=== PATIENT | female | born 1985 | race Caucasian/White ===

== ENCOUNTER 2016-11-04 16:28 | Inpatient (IN) ==
[2016-11-04] MEDS ORDERED: Ketorolac 30 MG/ML VIAL IVP ONE (17:59)
[2016-11-04] MEDS ORDERED: *HR* HYDROmorphone (PF) 1 MG/ML SYRINGE IVP ONE (17:59)
[2016-11-04] MEDS ORDERED: 0.9 % Sodium Chloride 1,000 ML IVC ONE (18:00)
[2016-11-04] MEDS ORDERED: Ondansetron 4 MG/2 ML VIAL IVP ONE (18:00)
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
[2016-11-04 18:31] LABS: Basophils # 0.1 K/mcL (0.0-0.2); Basophils % 0.6 %; Eosinophils # 0.1 K/mcL (0.0-0.6); Eosinophils % 1.3 %; Hematocrit 42.6 % (35.3-44.9); Hemoglobin 14.1 g/dL (11.5-15.4); Immature Granulocytes % 0.3 % (0-4); Lymphocytes # 3.1 K/mcL (0.6-4.6); Lymphocytes % 29.4 %; Mean Corpuscular HGB Conc 33.1 g/dL (31.6-35.5); Mean Corpuscular Hemoglobin 31.7 pg (28.0-33.3); Mean Corpuscular Volume 95.7 fL (83.0-100.0); Mean Platelet Volume 10.9 fL (9.4-12.4); Monocytes # 0.7 K/mcL (0.0-1.3); Monocytes % 6.2 %; Neutrophils # 6.5 K/mcL (1.6-8.9); Platelet Count 231 K/mcL (140-400); Red Blood Count 4.45 M/mcL (3.82-4.97); Red Cell Distribution Width 12.4 % (11.5-14.5); Segmented Neutrophils % 62.2 %
[2016-11-04 18:44] LABS: Alanine Aminotransferase 26 Units/L (0-55); Albumin 4.1 g/dL (3.5-5.0); Albumin/Globulin Ratio 1.1 (1.1-2.2); Alkaline Phosphatase 88 Units/L (38-126); Aspartate Amino Transferase 21 Units/L (5-34); BUN/Creatinine Ratio 13 (6-26); Bilirubin,Total 0.2 mg/dL (0.2-1.2); Blood Urea Nitrogen 11 mg/dL (7-20); Calcium 10.2 mg/dL (8.6-10.8); Carbon Dioxide 24 mEq/L (19-29); Chloride 105 mEq/L (98-109); Globulin 3.8 g/dL (2.4-3.5); Glucose 101 mg/dL (70-99); Osmolality,Calculated 288 (280-300); Potassium 3.8 mEq/L (3.5-4.5); Sodium 139 mEq/L (136-145); Total Protein 7.9 g/dL (6.0-8.3); eGFR For African Americans > 60 (> 60); eGFR For Non-African Americans > 60 (> 60)
[2016-11-04] MEDS ORDERED: Naloxone 0.4 MG/ML INJ IVP PRN (22:06)
[2016-11-04] MEDS ORDERED: Acetaminophen 325 MG TABLET PO PRN (22:06)
--- NOTE | 2016-11-04 22:21 | Internal Med History&Physical ---
<WylieDee M - Last Filed: 11/04/16 22:48> Date of Encounter: 11/04/16 Time of Encounter: 22:11 Assessment and Plan (1) Pyelonephritis Current visit: Yes Status: Acute Patient with bilateral flank pain, nausea, hematuria, chills and body aches, consistent with her previous symptoms with pyelo. Significant bilateral CVA tenderness. Urine culture from 5 grew resistant e.coli. Patient with multiple antibiotic allergies. blood cultures drawn. Aztreonam 1g IVPB Q8hr IV fluids 0.9NS at 100mL/hr Zofran PRN for nausea tylenol, norco and IVP diluadid PRN for pain Narcan PRN for respiratory depression. (2) UTI (urinary tract infection) Current visit: No Status: Acute Patient with bilateral flank pain, nausea, hematuria, chills and body aches, consistent with her previous symptoms with pyelo. Significant bilateral CVA tenderness. Urine culture from 11/02 grew resistant e.coli. Patient with multiple antibiotic allergies. Aztreonam 1g IVPB Q8hr IV fluids 0.9NS at 100mL/hr Zofran PRN for nausea tylenol, norco and IVP diluadid PRN for pain Narcan PRN for respiratory depression. Qualifiers: Urinary tract infection type: acute pyelonephritis Qualified Code(s): N10 - Acute pyelonephritis (3) DVT prophylaxis Current visit: Yes Status: Acute Encourage ambulation anti-embolic stockings Heparin 5,000u SQ BID (4) Asthma Current visit: Yes Status: Acute Continue home dose of albuterol and beclamethasone inhalers Qualifiers: Asthma severity: unspecified severity Asthma complication type: uncomplicated Qualified Code(s): J45.909 - Unspecified asthma, uncomplicated (5) Smoking Current visit: Yes Status: Acute Discussed smoking cessation and risks of smoking on intermediate health. Patient not ready to quit. nicotine patch ordered. Internal Medicine - H&P: HPI Chief complaint: UTI Admitted From: Emergency Dept Plans for Post Hospital Care: Home History of present illness: Ms. Alfred is a 31 year old female with a asthma, neurogenic bladder and multiple episodes of pyelonephritis in the past who presented to the ED today with worsening symptoms of bilateral flank pain, nausea, chills, hematuria and body aches. She reports the symptoms started about a week ago. She came to the ED 2 days ago on 11/02 and was given levaquin. Her symptoms have continued to get worse. She denies any headache, chest pain, palpitations, lightheadedness. The urine culture from 11/02 grew e.coli resistant to ciprofloxacin. CT from 11/02 showed non obstructing bilateral renal calculi, no hydronephrosis or perinephric stranding. She was afebrile with stable VS in the ED. WBC 10.5, creatinine normal at 0.87. The ED initiated aztreonam IVPB. On exam, she is alert and oriented and in no acute distress. Lungs are clear , heart has regular rate and rhythm, Abdomen is mildly tender, and she has significant CVA tenderness bilaterally. Past Med Surg Social Fam HX - Past Medical History Medical history: asthma, kidney stones, renal disease, other (neurogenic bladder ) Psychiatric history: anxiety, depression - Past Surgical History Surgical History: , cholecystectomy, herniorrhaphy, hysterectomy - Social History Smoking Status: Current every day smoker Packs per day: 0.5 Smokeless Tobacco Status: No Alcohol use: rarely Drug use: none - Family History Father Living Status: Age at : 64 Cause of : MS Internal Medicine - H&P: Meds Albuterol Sulfate [Albuterol Inhaler] 2 puff IH Q6HR PRN #1 hfa.aer.ad 08/11/15 [Rx] AcetaZOLAMIDE [Diamox Sequels] 500 mg PO BID 11/04/16 [History] Azelastine 0.1% Nasal [place] [Astelin] 2 spray NS DAILY 11/04/16 [History] Beclomethasone Diprop 80mcg [QVAR 80 mcg] 2 puff IH BID 11/04/16 [History] Buspirone HCl [Buspar] 30 mg PO BID 11/04/16 [History] Dicyclomine [Bentyl] 10 mg PO QID 11/04/16 [History] Omeprazole [PriLOSEC] 20 mg PO DAILY 11/04/16 [History] Allergies ceftriaxone [From Rocephin] Allergy (Verified 11/04/16 16:41) Blister cephalexin [From Keflex] Allergy (Verified 11/04/16 16:41) Blister gentamicin [Gentamicin] Allergy (Verified 11/04/16 16:41) Blister Influenza Virus Vaccines Allergy (Verified 11/04/16 16:41) Swelling of Lip/Tongue/Throat Penicillins [PCN] Allergy (Verified 11/04/16 16:41) Swelling of Lip/Tongue/Throat Pneumococcal Vaccine Allergy (Verified 11/04/16 16:41) Swelling of Lip/Tongue/Throat Sulfa (Sulfonamide Antibiotics) Allergy (Verified 11/04/16 16:41) Muscle Pain ciprofloxacin [From Cipro] Adverse Reaction (Verified 11/04/16 16:41) See Comments it doesn't work nitrofurantoin [From Macrobid] Adverse Reaction (Verified 11/04/16 16:41) Blister tramadol Adverse Reaction (Verified 11/04/16 16:41) Fatigued All Systems PM: A 10-system review of systems was performed and is negative for pertinent findings except as documented above in the HPI. - Constitutional Constitutional: chills, no fever(s), no night sweats - EENT Eyes: no change in vision, no discharge, no pain, no photophobia Ears: no ear discharge, no ear pain, no tinnitus Nose, mouth and throat: no dysphagia, no nasal discharge, no neck pain, no sore throat - Cardiovascular Cardiovascular ROS IM: no chest pain, no diaphoresis, no dyspnea, no lightheadedness, no palpitations, no syncope - Respiratory Respiratory: no cough, no dyspnea, no wheezing, no excessive phlegm production - Gastrointestinal Gastrointestinal: abdominal pain, nausea, no diarrhea, no hematemesis, no hematochezia, no melena, no vomiting - Genitourinary Genitourinary: hematuria, no change in urinary stream, no dysuria, no flank pain - Musculoskeletal Musculoskeletal ROS IM: no numbness, no tingling - Integumentary Integumentary IM: no rash, no unusual bruising - Neurological Neurological ROS: no confusion, no convulsions, no focal weakness, no numbness, no tingling, no tremor(s) - Hematologic/Lymphatic Hematologic/Lymphatic: no easy bruising - Constitutional Vitals: Temp Pulse Resp BP Pulse Ox 97.8 F 78 16 112/72 97 11/04/16 20:50 11/04/16 20:50 11/04/16 20:50 11/04/16 20:50 11/04/16 20:50 General appearance: Present: A&O X 3, no acute distress - Head Head exam: Present: atraumatic, normocephalic - Eye Eye exam: Present: PERRL, conjuntiva pink, sclera anicteric Pupils: Present: PERRL - Neck Neck exam general surgery: Present: supple, trachea midline. Absent: lymphadenopathy - Respiratory Respiratory exam: Present: CTAB. Absent: accessory muscle use, rales, rhonchi, wheezes - Cardiovascular Cardiovascular exam: Present: RRR, +S1, +S2. Absent: diastolic murmur, gallop, rubs, systolic murmur - GI/Abdominal GI/Abdominal exam: Present: normal bowel sounds, soft, tenderness, no peritoneal signs. Absent: distended - Extremities Exam Extremities exam: Present: warm, radial pulses palpable and symetrical. Absent : calf tenderness, cyanotic, pedal edema - Back Exam Back exam: Present: CVA tenderness (L), CVA tenderness (R) - Neurological Exam Neurological exam: Present: CN II-XII intact, oriented X3, no focal deficits. Absent: facial droop, speech deficit - Skin Skin exam: Present: dry, intact Internal Med - H&P Results - Labs CBC & Chem 7: 11/04/16 18:21 11/04/16 18:21 <Tyler Porras R - Last Filed: 11/05/16 10:12> Date of Encounter: 11/04/16 Internal Medicine - H&P: HPI History of present illness: Ms. Alfred is a 31 year old female All Systems PM: A 10-system review of systems was performed and is negative for pertinent findings except as documented above in the HPI. - Constitutional Vitals: Temp Pulse Resp BP Pulse Ox 97.6 F 61 14 92/60 93 L 11/05/16 07:30 11/05/16 07:30 11/05/16 07:30 11/05/16 07:30 11/05/16 07:30 Internal Med - H&P Results - Labs CBC & Chem 7: 11/05/16 04:49 11/05/16 04:49 Labs: Short CBC 11/05/16 Range/Units 04:49 WBC 7.9 (4.3-11.1) K/mcL Hgb 12.9 (11.5-15.4) g/dL Hct 40.9 (35.3-44.9) % Plt Count 196 (140-400) K/mcL Neutrophils # 3.4 (1.6-8.9) K/mcL [facility] 11/05/16 04:49 Sodium 141 Potassium 4.0 Chloride 110 H Carbon Dioxide 25 BUN 13 Creatinine 0.85 Glucose 107 H Calcium 9.3 - Attending Attestation I examined this patient and my medical decision-making was reviewed with the CAD ADMINISTRATOR/PA/Advanced Practice Nurse/Resident Physician. I agree with the documented findings, disposition and treatment plan as described except to the extent set forth below. I have personally evaluated the pt and discussed the details with the pt. 31- year-old female with history for neurogenic bladder and straight catheters at home. She uses sterile catheter each time. 2-3 UTIs / year. O/E: Afebrile. Bilateral renal angle tenderness present. UTI / pyelonephritis: urine culture on 11/02/16 shows E.coli, resistant to ciprofloxacin. Estela has multiple drug allergies. Will emperically treat with aztreonam 500 mg Q8H. Will request Microbiology to check sensitivities to aztreonam. Follow up with her urologist, to consider prophylactic antibiotics.
[2016-11-04] MEDS: *HR* HYDROmorphone (PF) 1 MG/ML SYRINGE IVP PRN (23:16)
[2016-11-04] MEDS: 0.9 % Sodium Chloride 1,000 ML IVC SCH (23:17)
[2016-11-05] MEDS ORDERED: *HR* Promethazine 25 MG/ML VIAL IVP ONE (01:33)
[2016-11-05] MEDS: *HR* HYDROcodone/Acet 5/325 mg TABLET PO PRN ×4 (01:46→20:27)
[2016-11-05] MEDS ORDERED: Aztreonam 1,000 MG in D5% in Water (Mini-Bag+) 100 ML IVPB SCH ×2 (04:00→13:00)
[2016-11-05] MEDS: *HR* HYDROmorphone (PF) 1 MG/ML SYRINGE IVP PRN ×3 (04:56→17:23)
[2016-11-05 05:36] LABS: Basophils # 0.1 K/mcL (0.0-0.2); Basophils % 0.6 %; Eosinophils # 0.3 K/mcL (0.0-0.6); Eosinophils % 3.2 %; Hematocrit 40.9 % (35.3-44.9); Hemoglobin 12.9 g/dL (11.5-15.4); Immature Granulocytes % 0.1 % (0-4); Lymphocytes # 3.6 K/mcL (0.6-4.6); Lymphocytes % 45.1 %; Mean Corpuscular HGB Conc 31.5 g/dL (31.6-35.5); Mean Corpuscular Hemoglobin 30.8 pg (28.0-33.3); Mean Corpuscular Volume 97.6 fL (83.0-100.0); Monocytes # 0.6 K/mcL (0.0-1.3); Monocytes % 7.7 %; Neutrophils # 3.4 K/mcL (1.6-8.9); Platelet Count 196 K/mcL (140-400); Red Blood Count 4.19 M/mcL (3.82-4.97); Red Cell Distribution Width 12.6 % (11.5-14.5); Segmented Neutrophils % 43.3 %
[2016-11-05 05:50] LABS: BUN/Creatinine Ratio 15 (6-26); Blood Urea Nitrogen 13 mg/dL (7-20); Calcium 9.3 mg/dL (8.6-10.8); Carbon Dioxide 25 mEq/L (19-29); Chloride 110 mEq/L (98-109); Glucose 107 mg/dL (70-99); Osmolality,Calculated 293 (280-300); Sodium 141 mEq/L (136-145); eGFR For African Americans > 60 (> 60); eGFR For Non-African Americans > 60 (> 60)
[2016-11-05] MEDS: *HR* Heparin 5,000 UNIT/ML VIAL SQ SCH ×2 (06:28→17:18)
[2016-11-05] MEDS: Beclomethasone 80mcg MDI IH SCH ×2 (07:53→21:05)
[2016-11-05] MEDS: Azelastine 0.1% Nasal Spray 30 ML BOTTLE NS SCH (09:00)
[2016-11-05] MEDS: acetaZOLAMIDE 250 MG TABLET PO SCH ×2 (09:35→20:29)
[2016-11-05] MEDS: Nicotine 14 MG PATCH.TD24 TD SCH (09:36)
[2016-11-05] MEDS: Ondansetron 4 MG/2 ML VIAL IVP PRN ×2 (09:48→20:27)
[2016-11-05] MEDS: Aztreonam 500 MG in D5% in Water 100 ML IVPB SCH ×2 (12:41→20:28)
[2016-11-05] MEDS: 0.9 % Sodium Chloride 1,000 ML IVC SCH (12:41)
--- NOTE | 2016-11-05 15:24 | Internal Med Progress Note ---
Date of Encounter: 11/05/16 Time of Encounter: 10:00 - Assessment and plan (1) Pyelonephritis Current Visit: Yes Status: Acute Assessment and plan: Continue IV antibiotics Preliminary blood cultures negative Abd CT noted, will need CHIEF RISK OFFICER eval in out-patient for pelvic mass consult not necessary in view of non-obstructing nephrolithiasis with no hydropnephrosis patient will need prolonged antibiotic therapy Continue care for now (2) Asthma Current Visit: Yes Status: Chronic Assessment and plan: Not in exacerbation. Duonebs prn Qualifiers: Asthma severity: unspecified severity Asthma complication type: uncomplicated Qualified Code(s): J45.909 - Unspecified asthma, uncomplicated (3) Tobacco abuse Current Visit: Yes Status: Chronic Assessment and plan: Continue NRT - Subjective Interval history: 31 Y/O F with Neurogenic bladder, Asthma and Tobacco abuse Patient was admitted following complains of flank pain and nausea and vomiting She was in ED 11/02/16 and discharged on Macrobid for UTI, Abd/Plevis CT at that time showed non-obstructing nephrolithiasis and a septated cystic left pelvic cyst which is stable and hepatic steatosis Patient self-catheterizes at home, she has an indwelling Cintron catheter in- patient Urine culture from 11/02 is growing E.coli with resistance to ampicillin/Unasyn/ Ciproflox/Levoflox but sensitive to Cephalosporins and Zosyn, patient started on Aztreonam due to hx of anaphylaxis to penicillins/ceftriaxone and Quinolones Preliminary blood culture is negative She is seen at bedside, states she has bladder spasms, and still has nausea She has been afebrile, vitals are stable, no leukocytosis - Constitutional Vitals: Temp Pulse Resp BP Pulse Ox 97.7 F 72 16 106/70 93 L 11/05/16 15:07 11/05/16 15:07 11/05/16 15:07 11/05/16 15:07 11/05/16 15:07 General appearance: Present: A&O X 3, pleasant, no acute distress - Head Head exam: Present: atraumatic, normocephalic - Eye Eye exam: Present: PERRL, conjuntiva pink, sclera anicteric Pupils: Present: PERRL - Neck Neck exam general surgery: Present: supple, trachea midline. Absent: lymphadenopathy - Respiratory Respiratory exam: Present: CTAB - Cardiovascular Cardiovascular exam: Present: RRR, +S1, +S2 - GI/Abdominal GI/Abdominal exam: Present: normal bowel sounds, soft, no peritoneal signs. Absent: pulsatile mass, tenderness - Additional comments: Indwelling Cintron draining clear urine - Extremities Exam Extremities exam: Absent: pedal edema - Back Exam Back exam: Present: CVA tenderness (L), CVA tenderness (R) - Neurological Exam Neurological exam: Present: CN II-XII intact, oriented X3, no focal deficits. Absent: pronater drift, facial droop, speech deficit - Skin Skin exam: Present: dry, intact Internal Medicine: Result - Labs CBC & Chem 7: 11/05/16 04:49 11/05/16 04:49 - VTE Documentation of Mechanical Device: Graduated compression elastic hosiery Consult Discharge Plan - Plan Referrals: Salma Sosa CNP [Advanced Practice Nurse] - 11/10/16 1:45 pm
[2016-11-05] MEDS: Promethazine 12.5 MG in 0.9 % Sodium Chloride 50 ML IVPB PRN (16:07)
[2016-11-05] MEDS ORDERED: Meropenem 500 MG in 0.9 % Sodium Chloride Mini Bag 100 ML IVPB ONE (18:08)
[2016-11-05] MEDS ORDERED: Aztreonam 1,000 MG in D5% in Water (Mini-Bag+) 100 ML IVPB ONE (19:02)
[2016-11-05] MEDS ORDERED: D5% in Water (Mini-Bag+) 100 ML IVPB ONE (20:11)
[2016-11-06] MEDS: *HR* HYDROcodone/Acet 5/325 mg TABLET PO PRN ×3 (00:32→15:11)
[2016-11-06] MEDS: Aztreonam 500 MG in D5% in Water 100 ML IVPB SCH ×3 (03:30→20:19)
[2016-11-06] MEDS: *HR* HYDROmorphone (PF) 1 MG/ML SYRINGE IVP PRN ×3 (03:31→18:14)
[2016-11-06 04:47] LABS: Basophils % 0.6 %; Eosinophils # 0.2 K/mcL (0.0-0.6); Eosinophils % 2.8 %; Hematocrit 42.1 % (35.3-44.9); Immature Granulocytes % 0.1 % (0-4); Lymphocytes # 3.1 K/mcL (0.6-4.6); Lymphocytes % 46.3 %; Mean Corpuscular HGB Conc 30.9 g/dL (31.6-35.5); Mean Corpuscular Hemoglobin 30.8 pg (28.0-33.3); Mean Corpuscular Volume 99.8 fL (83.0-100.0); Monocytes # 0.4 K/mcL (0.0-1.3); Monocytes % 6.2 %; Platelet Count 183 K/mcL (140-400); Red Blood Count 4.22 M/mcL (3.82-4.97); Red Cell Distribution Width 12.6 % (11.5-14.5)
[2016-11-06 05:00] LABS: BUN/Creatinine Ratio 14 (6-26); Blood Urea Nitrogen 11 mg/dL (7-20); Calcium 9.3 mg/dL (8.6-10.8); Carbon Dioxide 20 mEq/L (19-29); Chloride 109 mEq/L (98-109); Glucose 107 mg/dL (70-99); Osmolality,Calculated 288 (280-300); Potassium 4.2 mEq/L (3.5-4.5); Sodium 139 mEq/L (136-145); eGFR For African Americans > 60 (> 60); eGFR For Non-African Americans > 60 (> 60)
[2016-11-06] MEDS: *HR* Heparin 5,000 UNIT/ML VIAL SQ SCH ×2 (05:57→18:16)
[2016-11-06] MEDS: acetaZOLAMIDE 250 MG TABLET PO SCH (07:45)
[2016-11-06] MEDS: Ondansetron 4 MG/2 ML VIAL IVP PRN ×2 (07:46→18:14)
[2016-11-06] MEDS: Azelastine 0.1% Nasal Spray 30 ML BOTTLE NS SCH (07:47)
[2016-11-06] MEDS: Nicotine 14 MG PATCH.TD24 TD SCH (07:47)
[2016-11-06] MEDS: Beclomethasone 80mcg MDI IH SCH ×2 (08:15→20:25)
[2016-11-06] MEDS ORDERED: D5% in Water (Mini-Bag+) 100 ML IVPB ONE ×2 (12:40→19:41)
--- NOTE | 2016-11-06 12:51 | Physician Discharge Referral ---
Home Health/Hosp Referral Info Transfer to: Home Health Provider in Charge Post Discharge: PCP - Diagnosis (1) Pyelonephritis Priority: Primary Status: Acute (2) Asthma Priority: Secondary Status: Chronic (3) Tobacco abuse Priority: Secondary Status: Chronic - Respiratory Orders Smoking Cessation: Smoking cessation has been advised. For more information, call the [place] Tobacco Quit Line at 5-734-SAVN-NOW. - Services Needed Following services are medically necessary services: Home Infusion Home Care Orders: IV Aztreonam 1g q8hr for 12 days - Transfer Medications Prescriptions: Aztreonam [Azactam] 1,000 mg IVPB Q8HR #36 vial Fluconazole [Diflucan] 150 mg PO ONCE #2 tablet Phenazopyridine [Pyridium] 100 mg PO TID #10 tablet Home Medications: Albuterol Sulfate [Albuterol Inhaler] 2 puff IH Q6HR PRN #1 hfa.aer.ad 08/11/15 [Rx] AcetaZOLAMIDE [Diamox Sequels] 500 mg PO BID 11/04/16 [History] Azelastine 0.1% Nasal [place] [Astelin] 2 spray NS DAILY 11/04/16 [History] Beclomethasone Diprop 80mcg [QVAR 80 mcg] 2 puff IH BID 11/04/16 [History] Buspirone HCl [Buspar] 30 mg PO BID 11/04/16 [History] Dicyclomine [Bentyl] 10 mg PO QID 11/04/16 [History] Omeprazole [PriLOSEC] 20 mg PO DAILY 11/04/16 [History] Aztreonam [Azactam] 1,000 mg IVPB Q8HR #36 vial 11/06/16 [Rx] Fluconazole [Diflucan] 150 mg PO ONCE #2 tablet 11/06/16 [Rx] Phenazopyridine [Pyridium] 100 mg PO TID #10 tablet 11/06/16 [Rx] Allergies/Adverse Reactions: Allergies ceftriaxone [From Rocephin] Allergy (Verified 11/04/16 16:41) Blister cephalexin [From Keflex] Allergy (Verified 11/04/16 16:41) Blister gentamicin [Gentamicin] Allergy (Verified 11/04/16 16:41) Blister Influenza Virus Vaccines Allergy (Verified 11/04/16 16:41) Swelling of Lip/Tongue/Throat Penicillins [PCN] Allergy (Verified 11/04/16 16:41) Swelling of Lip/Tongue/Throat Pneumococcal Vaccine Allergy (Verified 11/04/16 16:41) Swelling of Lip/Tongue/Throat Sulfa (Sulfonamide Antibiotics) Allergy (Verified 11/04/16 16:41) Muscle Pain ciprofloxacin [From Cipro] Adverse Reaction (Verified 11/04/16 16:41) See Comments it doesn't work nitrofurantoin [From Macrobid] Adverse Reaction (Verified 11/04/16 16:41) Blister tramadol Adverse Reaction (Verified 11/04/16 16:41) Fatigued Certification: Further, I certify that my clinical findings support that this patient is homebound (i.e. absences from home require considerable and taxing effort and are for medical reasons or spiritism services or infrequently or short duration when for other reasons) because: Homebound Reason: Leaving home requires considerable and taxing effort due to condition Attestation: My signature below is to certify that this patient is under my care and that I, or nurse practitioner, or a physician's commercial lending assistant working with me, has a face-to -face encounter with this patient.
--- NOTE | 2016-11-06 13:09 | Discharge Summary ---
Date of Encounter: 11/06/16 Time of Encounter: 10:00 - Discharge Diagnosis (1) Pyelonephritis Priority: Primary Status: Acute (2) Asthma Priority: Secondary Status: Chronic Qualifiers: Asthma severity: unspecified severity Asthma complication type: uncomplicated Qualified Code(s): J45.909 - Unspecified asthma, uncomplicated (3) Tobacco abuse Priority: Secondary Status: Chronic - Discharge Medications Prescriptions: Aztreonam [Azactam] 1,000 mg IVPB Q8HR #36 vial Fluconazole [Diflucan] 150 mg PO ONCE #2 tablet Phenazopyridine [Pyridium] 100 mg PO TID #10 tablet Home Medications: Albuterol Sulfate [Albuterol Inhaler] 2 puff IH Q6HR PRN #1 hfa.aer.ad 08/11/15 [Rx] AcetaZOLAMIDE [Diamox Sequels] 500 mg PO BID 11/04/16 [History] Azelastine 0.1% Nasal [place] [Astelin] 2 spray NS DAILY 11/04/16 [History] Beclomethasone Diprop 80mcg [QVAR 80 mcg] 2 puff IH BID 11/04/16 [History] Buspirone HCl [Buspar] 30 mg PO BID 11/04/16 [History] Dicyclomine [Bentyl] 10 mg PO QID 11/04/16 [History] Omeprazole [PriLOSEC] 20 mg PO DAILY 11/04/16 [History] Aztreonam [Azactam] 1,000 mg IVPB Q8HR #36 vial 11/06/16 [Rx] Fluconazole [Diflucan] 150 mg PO ONCE #2 tablet 11/06/16 [Rx] Phenazopyridine [Pyridium] 100 mg PO TID #10 tablet 11/06/16 [Rx] Allergies/Adverse Reactions: Allergies ceftriaxone [From Rocephin] Allergy (Verified 11/04/16 16:41) Blister cephalexin [From Keflex] Allergy (Verified 11/04/16 16:41) Blister gentamicin [Gentamicin] Allergy (Verified 11/04/16 16:41) Blister Influenza Virus Vaccines Allergy (Verified 11/04/16 16:41) Swelling of Lip/Tongue/Throat Penicillins [PCN] Allergy (Verified 11/04/16 16:41) Swelling of Lip/Tongue/Throat Pneumococcal Vaccine Allergy (Verified 11/04/16 16:41) Swelling of Lip/Tongue/Throat Sulfa (Sulfonamide Antibiotics) Allergy (Verified 11/04/16 16:41) Muscle Pain ciprofloxacin [From Cipro] Adverse Reaction (Verified 11/04/16 16:41) See Comments it doesn't work nitrofurantoin [From Macrobid] Adverse Reaction (Verified 11/04/16 16:41) Blister tramadol Adverse Reaction (Verified 11/04/16 16:41) Fatigued Date of admission: 11/05/16 13:41 Primary care physician: Kaya Cook Consults: 11/06/16 08:34 Consult to Invasive Line Access Team [CONS] Routine Reason for Consult: 12 days of antibiotics Line Type: EPIV Discharging clinician: Bryan Dumont Anticipated date of discharge: 11/06/16 - Patient Status Disposition: Home Health Service Condition: Good Functional capacity at discharge: independent ambulation Overall status at discharge: patient is back to baseline - Discharge Instructions Follow Up With: Salma Sosa SPRAGGER [Advanced Practice Nurse] - 11/10/16 1:45 pm - Diet and Activity Activity: resume usual activities as tolerated Diet: advance to your usual diet Interval History: See below Hospital course: 31 Y/O F with Neurogenic bladder, Asthma and Tobacco abuse Patient was admitted following complains of flank pain and nausea and vomiting She was in ED 11/02/16 and discharged on Macrobid for UTI, Abd/Plevis CT at that time showed non-obstructing nephrolithiasis and a septated cystic left pelvic cyst which is stable and hepatic steatosis Patient self-catheterizes at home Urine culture from 11/02 is growing E.coli with resistance to ampicillin/Unasyn/ Ciproflox/Levoflox but sensitive to Cephalosporins and Zosyn, patient was started on Aztreonam due to hx of anaphylaxis to penicillins/ceftriaxone and Quinolones Preliminary blood culture is negative She has been afebrile since admission, with no leukocytosis or tachycardia She is seen at bedside today, has no new complains and is clinically improved She is stable for discharge home to complete 12 more days of IV antibiotics She has a Urologist she follows up with outside, encourage follow up Smoking cessation counselling done for 3 minutes Time spent discussing smoking cessation with patient: 3 to 10 minutes (3 minutes ) - Time Spent with Patient Total time spent providing and/or coordinating discharge services: Less than 30 minutes - Constitutional Vitals: Temp Pulse Resp BP Pulse Ox 97.9 F 63 12 108/70 94 L 11/06/16 11:48 11/06/16 11:48 11/06/16 11:48 11/06/16 11:48 11/06/16 11:48 General appearance: Present: A&O X 3, pleasant, no acute distress - Head Head exam: Present: atraumatic, normocephalic - Eye Eye exam: Present: PERRL, conjuntiva pink, sclera anicteric Pupils: Present: PERRL - Neck Neck exam general surgery: Present: supple, trachea midline. Absent: lymphadenopathy - Respiratory Respiratory exam: Present: CTAB. Absent: accessory muscle use, rales, rhonchi, wheezes - Cardiovascular Cardiovascular exam: Present: RRR, +S1, +S2. Absent: diastolic murmur, gallop, rubs, systolic murmur - GI/Abdominal GI/Abdominal exam: Present: normal bowel sounds, soft, no peritoneal signs. Absent: distended, tenderness - Extremities Exam Extremities exam: Present: warm, radial pulses palpable and symetrical. Absent : calf tenderness, cyanotic, pedal edema - Neurological Exam Neurological exam: Present: CN II-XII intact, oriented X3, no focal deficits. Absent: pronater drift, facial droop, speech deficit - Skin Skin exam: Present: dry - VTE Documentation of Mechanical Device: Graduated compression elastic hosiery
[2016-11-06] MEDS: Promethazine 12.5 MG in 0.9 % Sodium Chloride 50 ML IVPB PRN (13:25)
[2016-11-06 16:22] VITALS: BP 95/61
== END 2016-11-06 21:00 | disposition home health service (06) | DRG 463 ==
LOC: 3ANU 16:28 → EMEROO 16:28 → 3ANU 20:31
PROVIDERS: ADMIT Family Medicine; ATTEND Internal Medicine

== ENCOUNTER 2017-04-05 20:38 | Inpatient (IN) ==
[2017-04-05] MEDS ORDERED: *HR* HYDROmorphone (PF) 1 MG/ML SYRINGE IVP ONE ×2 (21:02→22:25)
[2017-04-05] MEDS ORDERED: Ondansetron 4 MG/2 ML VIAL IVP ONE (21:02)
--- NOTE | 2017-04-05 21:03 | Emergency Department Note ---
Disposition Clinical Impression: Calculus of kidney, Pelvic cyst, UTI (urinary tract infection), Sepsis, Hydronephrosis Disposition: Admitted As Inpatient Referrals: Kaya Cook [Primary Care Provider] - Forms: Work/School Release, ED Satisfaction Letter General Adult HPI - General Chief complaint: ED Abdominal Pain Stated complaint: abd pain into back Time Seen by Provider: 04/05/17 20:56 Source: patient, family Limitations: no limitations - History of Present Illness HPI Narrative: 31-year-old female reports to the emergency department complaining of left flank pain radiating to the left groin. She describes diffuse left abdominal pain and back pain. The pain started suddenly earlier this afternoon. She has no history of kidney stones. She reports she has had multiple hernia repairs, as well as hysterectomy remotely. There is no history of recent surgery. She is not anticoagulated. She has chronic back pain but has not had back surgery. The pain is not midline or spinal. There is no history of weakness or numbness of the legs or bowel or bladder dysfunction. No chest pain shortness of breath or fever. The patient describes chronic recurrent hematuria. She thinks she may have a kidney stone. The pain is not associated with movement there is no history of rash or injury. No fever or vomiting. No chest pain or shortness of breath. Pain Scale: 10 - Related Data Home Medications Medication Instructions Recorded Confirmed RX: AcetaZOLAMIDE [Diamox Sequels] 500 mg PO BID 11/04/16 11/04/16 RX: Azelastine 0.1% Nasal [place] 2 spray NS DAILY 11/04/16 11/04/16 [Astelin] RX: Beclomethasone Diprop 80mcg 2 puff IH BID 11/04/16 11/04/16 [QVAR 80 mcg] RX: Buspirone HCl [Buspar] 30 mg PO BID 11/04/16 11/04/16 RX: Dicyclomine [Bentyl] 10 mg PO QID 11/04/16 11/04/16 RX: Omeprazole [PriLOSEC] 20 mg PO DAILY 11/04/16 11/04/16 Previous Rx's Medication Instructions Recorded RX: Albuterol Sulfate [Albuterol 2 puff IH Q6HR PRN #1 hfa.aer.ad 08/11/15 Inhaler] RX: Aztreonam [Azactam] 1,000 mg IVPB Q8HR #36 vial 11/06/16 RX: Fluconazole [Diflucan] 150 mg PO ONCE #2 tablet 11/06/16 RX: Phenazopyridine [Pyridium] 100 mg PO TID #10 tablet 11/06/16 Allergies Allergy/AdvReac Type Severity Reaction Status Date / Time ceftriaxone [From Rocephin] Allergy Blister Verified 12/01/16 19:09 cephalexin [From Keflex] Allergy Blister Verified 12/01/16 19:09 gentamicin [Gentamicin] Allergy Blister Verified 12/01/16 19:09 Influenza Virus Vaccines Allergy Swelling Verified 12/01/16 19:09 of Lip/Tongue/Throat Penicillins [PCN] Allergy Swelling Verified 12/01/16 19:09 of Lip/Tongue/Throat Pneumococcal Vaccine Allergy Swelling Verified 12/01/16 19:09 of Lip/Tongue/Throat Sulfa (Sulfonamide Allergy Muscle Pain Verified 12/01/16 19:09 Antibiotics) ciprofloxacin [From Cipro] AdvReac See Verified 12/01/16 19:09 Comments nitrofurantoin AdvReac Blister Verified 12/01/16 19:09 [From Macrobid] tramadol AdvReac Fatigued Verified 12/01/16 19:09 All systems ED: reviewed and negative except as stated. Past Medical History - Past Medical History Medical history: Reports: asthma, kidney stones, renal disease, other Surgical history: Reports: , cholecystectomy, herniorrhaphy, hysterectomy Psychiatric history: Reports: anxiety, depression ANIMAL SERVICES OFFICER history: Reports: no ANIMAL SERVICES OFFICER history, bilateral tubal ligation - Social History Smoking Status: Current every day smoker Smokeless Tobacco Status: No Alcohol use: Reports: rarely Drug use: Reports: none Physical Exam - General Limitations: no limitations General appearance: alert, anxious, other (The patient appears to be uncomfortable and somewhat anxious, she is cooperative communicative and alert.) - Head Head exam: atraumatic, normocephalic, normal inspection - Eye Eye exam: Present: normal appearance, PERRL, EOMI. Absent: scleral icterus, conjunctival injection, miosis, mydriasis - ENT ENT exam: normal exam, normal oropharynx, mucous membranes moist, TM's normal bilaterally, normal external ear exam - Neck Neck exam: Present: normal inspection, full ROM, trachea midline. Absent: tenderness - Chest Chest inspection: Present: symmetric chest wall rise. Absent: tenderness - Respiratory Respiratory exam: Present: normal lung sounds bilaterally. Absent: respiratory distress, wheezes, stridor, accessory muscle use, prolonged expiratory phase - Cardiovascular Cardiovascular exam: Present: regular rate, normal rhythm, normal heart sounds - Abdominal Exam Abdominal exam: Present: soft, tenderness. Absent: distention, guarding, rigidity, trauma, pulsatile mass Abdominal tenderness: Present: LUQ, LLQ, moderate - Extremities Exam Extremities exam: Present: normal inspection, full ROM, normal capillary refill. Absent: tenderness, pedal edema, joint swelling, calf tenderness - Expanded Lower Extremity Exam Lower leg exam: Absent: Homans' sign Neurovascular/Tendon exam: Present: normal capillary refill. Absent: motor deficit, sensory deficit, tendon deficit, extremity cold to touch, pallor - Back Exam Back exam: Present: normal inspection, full ROM, CVA tenderness (L). Absent: CVA tenderness (R), vertebral tenderness, straight leg raise (R), straight leg raise (L) - Neurological Exam Neurological exam: Present: alert, oriented X3, CN II-XII intact. Absent: motor sensory deficit - Psychiatric Psychiatric exam: Present: anxious - Skin Skin exam: Present: warm, dry, intact, normal color. Absent: rash, cyanosis, diaphoresis, erythema, pallor Course Vital Signs Temperature 98.2 F 04/05/17 20:41 Pulse Rate 99 04/05/17 20:41 Respiratory Rate 20 04/05/17 20:41 Blood Pressure 130/85 04/05/17 20:41 O2 Sat by Pulse Oximetry 93 04/05/17 20:41 Temperature 98.2 F 04/05/17 20:41 Pulse Rate 92 04/05/17 23:28 Respiratory Rate 16 04/05/17 23:28 Blood Pressure 104/72 04/05/17 23:28 O2 Sat by Pulse Oximetry 94 04/05/17 23:28 Oxygen Delivery Oxygen Delivery Room Air Medical Decision Making - MDM Narrative Medical decision making narrative: The patient is tachycardic, tachypnic, has an elevated white cell count, and has a source of infection and meets SIRS sepsis criteria. Pyelonephritis could also be considered. IV fluids were given as well as pain control medications and anti-emetics. Antiibiotics have been ordered. The patient appears to have hydronephrosis on the left with a pelvic cyst of uncertain etiology. She has what appears to be hydronephrosis and bilateral kidney stones. The patient demonstrates significant pain. Based on her abnormal urinalysis, abnormal ureteral findings, bilateral kidney stones, criteria positive for Sirs sepsis, I thought it would be appropriate to admit the patient to the hospital. I discussed the case with the hospitalist on-call who has accepted the patient to their care. Secondary consults, Urology and ANIMAL SERVICES OFFICER at the hospitalist's discretion. The patient is currently stable pending admission. - Lab Data Lab results reviewed: Yes I reviewed the patient's lab results. Result diagrams: 04/05/17 21:30 04/05/17 21:30 Lab Results 04/05/17 04/05/17 04/05/17 Range/Units 21:27 21:30 21:30 WBC 17.4 H (4.3-11.1) K/mcL RBC 4.94 (3.82-4.97) M/mcL Hgb 15.0 (11.5-15.4) g/dL Hct 46.3 H (35.3-44.9) % MCV 93.7 (83.0-100.0) fL MCH 30.4 (28.0-33.3) pg MCHC 32.4 (31.6-35.5) g/dL RDW 12.7 (11.5-14.5) % Plt Count 267 (140-400) K/mcL MPV 10.7 (9.4-12.4) fL Immature Gran % 0.5 (0-4) % Seg Neutrophils % 77.0 % Lymphocytes % 15.5 % Monocytes % 5.8 % Eosinophils % 0.8 % Basophils % 0.4 % Neutrophils # 13.4 H (1.6-8.9) K/mcL Lymphocytes # 2.7 (0.6-4.6) K/mcL Monocytes # 1.0 (0.0-1.3) K/mcL Eosinophils # 0.1 (0.0-0.6) K/mcL Basophils # 0.1 (0.0-0.2) K/mcL Immature Plt Fraction 5.6 (1.1-6.1) % Sodium 138 (136-145) mEq/L Potassium 3.9 (3.5-4.5) mEq/L Chloride 104 (98-109) mEq/L Carbon Dioxide 22 (19-29) mEq/L BUN 11 (7-20) mg/dL Creatinine 0.87 (0.57-1.11) mg/dL Est GFR ( Amer) > 60 (> 60) Est GFR (Non-Af Amer) > 60 (> 60) BUN/Creatinine Ratio 13 (6-26) Glucose 98 (70-99) mg/dL Calculated Osmolality 285 (280-300) Lactic Acid (0.5-2.2) mmol/L Calcium 10.1 (8.6-10.8) mg/dL Total Bilirubin (0.2-1.2) mg/dL Direct Bilirubin (0.0-0.5) mg/dL Indirect Bilirubin (0.0-1.2) mg/dL AST (5-34) Units/L ALT (0-55) Units/L Alkaline Phosphatase (38-126) Units/L C-Reactive Protein (Less than 5) mg/L Serum Total Protein (6.0-8.3) g/dL Albumin (3.5-5.0) g/dL Globulin (2.4-3.5) g/dL Albumin/Globulin Ratio (1.1-2.2) Urine Color Yellow (Yellow) Urine Clarity Turbid A (Clear) Urine pH 6.0 (5.0-8.0) pH Units Ur Specific [place] 1.018 (1.010-1.025) Urine Protein 100 H (Neg-Trace) mg/dL Urine Glucose (UA) Normal (Normal) mg/dL Urine Ketones Negative (Negative) mg/dL Urine Blood Large H (Negative) Urine Nitrite Positive A (Negative) Urine Bilirubin Negative (Negative) Urine Urobilinogen Normal (Normal) mg/dL Ur Leukocyte Esterase Large H (Negative) Urine Microscopic RBC 5-15 H (0-3) per hpf Urine Microscopic WBC TNTC H (0-3) per hpf Ur Squamous Epith Cells Many H (None-Few) per lpf Urine Bacteria Many H (None-Few) per hpf Hyaline Casts None Seen (None-Few) per lpf Urine Yeast Few H (None Seen) per hpf Ur Culture Indicated? YES A (NO) 04/05/17 04/05/17 Range/Units 21:30 21:30 WBC (4.3-11.1) K/mcL RBC (3.82-4.97) M/mcL Hgb (11.5-15.4) g/dL Hct (35.3-44.9) % MCV (83.0-100.0) fL MCH (28.0-33.3) pg MCHC (31.6-35.5) g/dL RDW (11.5-14.5) % Plt Count (140-400) K/mcL MPV (9.4-12.4) fL Immature Gran % (0-4) % Seg Neutrophils % % Lymphocytes % % Monocytes % % Eosinophils % % Basophils % % Neutrophils # (1.6-8.9) K/mcL Lymphocytes # (0.6-4.6) K/mcL Monocytes # (0.0-1.3) K/mcL Eosinophils # (0.0-0.6) K/mcL Basophils # (0.0-0.2) K/mcL Immature Plt Fraction (1.1-6.1) % Sodium (136-145) mEq/L Potassium (3.5-4.5) mEq/L Chloride (98-109) mEq/L Carbon Dioxide (19-29) mEq/L BUN (7-20) mg/dL Creatinine (0.57-1.11) mg/dL Est GFR ( Amer) (> 60) Est GFR (Non-Af Amer) (> 60) BUN/Creatinine Ratio (6-26) Glucose (70-99) mg/dL Calculated Osmolality (280-300) Lactic Acid 1.4 (0.5-2.2) mmol/L Calcium (8.6-10.8) mg/dL Total Bilirubin 0.7 (0.2-1.2) mg/dL Direct Bilirubin 0.2 (0.0-0.5) mg/dL Indirect Bilirubin 0.5 (0.0-1.2) mg/dL AST 23 (5-34) Units/L ALT 31 (0-55) Units/L Alkaline Phosphatase 105 (38-126) Units/L C-Reactive Protein 19 H (Less than 5) mg/L Serum Total Protein 8.5 H (6.0-8.3) g/dL Albumin 4.2 (3.5-5.0) g/dL Globulin 4.3 H (2.4-3.5) g/dL Albumin/Globulin Ratio 1.0 L (1.1-2.2) Urine Color (Yellow) Urine Clarity (Clear) Urine pH (5.0-8.0) pH Units Ur Specific [place] (1.010-1.025) Urine Protein (Neg-Trace) mg/dL Urine Glucose (UA) (Normal) mg/dL Urine Ketones (Negative) mg/dL Urine Blood (Negative) Urine Nitrite (Negative) Urine Bilirubin (Negative) Urine Urobilinogen (Normal) mg/dL Ur Leukocyte Esterase (Negative) Urine Microscopic RBC (0-3) per hpf Urine Microscopic WBC (0-3) per hpf Ur Squamous Epith Cells (None-Few) per lpf Urine Bacteria (None-Few) per hpf Hyaline Casts (None-Few) per lpf Urine Yeast (None Seen) per hpf Ur Culture Indicated? (NO) - Radiology Data Radiology results reviewed: Yes I reviewed the patient's radiology results.
[2017-04-05 21:39] LABS: Basophils # 0.1 K/mcL (0.0-0.2); Basophils % 0.4 %; Eosinophils # 0.1 K/mcL (0.0-0.6); Eosinophils % 0.8 %; Hematocrit 46.3 % (35.3-44.9); Immature Granulocytes % 0.5 % (0-4); Immature Platelets 5.6 % (1.1-6.1); Lymphocytes # 2.7 K/mcL (0.6-4.6); Lymphocytes % 15.5 %; Mean Corpuscular HGB Conc 32.4 g/dL (31.6-35.5); Mean Corpuscular Hemoglobin 30.4 pg (28.0-33.3); Mean Corpuscular Volume 93.7 fL (83.0-100.0); Mean Platelet Volume 10.7 fL (9.4-12.4); Monocytes % 5.8 %; Neutrophils # 13.4 K/mcL (1.6-8.9); Platelet Count 267 K/mcL (140-400); Red Blood Count 4.94 M/mcL (3.82-4.97); Red Cell Distribution Width 12.7 % (11.5-14.5)
[2017-04-05 21:43] LABS: Bilirubin,Urine Negative (Negative); Blood,Urine Large (Negative); Clarity,Urine Turbid (Clear); Color,Urine Yellow (Yellow); Glucose,Urine (UA) Normal (Normal); Ketones,Urine Negative (Negative); Leukocyte Esterase,Urine Large (Negative); Nitrite,Urine Positive (Negative); Protein,Urine 100 mg/dL (Neg-Trace); Specific Gravity,Urine 1.018 (1.010-1.025); Urobilinogen,Urine Normal (Normal)
[2017-04-05 21:45] LABS: Bacteria,Urine Many per hpf (None-Few); Hyaline Casts,Urine None Seen per lpf (None-Few); Squamous Epithelial Cell,Urine Many per lpf (None-Few); WBC,Urine TNTC per hpf (0-3)
[2017-04-05 21:50] LABS: BUN/Creatinine Ratio 13 (6-26); Blood Urea Nitrogen 11 mg/dL (7-20); Calcium 10.1 mg/dL (8.6-10.8); Carbon Dioxide 22 mEq/L (19-29); Chloride 104 mEq/L (98-109); Glucose 98 mg/dL (70-99); Osmolality,Calculated 285 (280-300); Potassium 3.9 mEq/L (3.5-4.5); Sodium 138 mEq/L (136-145); eGFR For African Americans > 60 (> 60); eGFR For Non-African Americans > 60 (> 60)
[2017-04-05 21:52] LABS: Albumin 4.2 g/dL (3.5-5.0); Bilirubin,Direct 0.2 mg/dL (0.0-0.5); Bilirubin,Indirect 0.5 mg/dL (0.0-1.2); Bilirubin,Total 0.7 mg/dL (0.2-1.2); Globulin 4.3 g/dL (2.4-3.5); Total Protein 8.5 g/dL (6.0-8.3)
[2017-04-05 21:58] LABS: Yeast,Urine Few per hpf (None Seen)
[2017-04-05] MEDS ORDERED: 0.9 % Sodium Chloride 1,000 ML IVC ONE (23:09)
[2017-04-06] MEDS ORDERED: Naloxone 0.4 MG/ML INJ IVP PRN (00:24)
--- NOTE | 2017-04-06 01:13 | Internal Med History&Physical ---
Date of Encounter: 04/06/17 Time of Encounter: 01:09 Assessment and Plan (1) Pyelonephritis Current visit: No Status: Acute recurrent UTI and pyelonephritis. allergic to multiple antibiotics follows with clara herrera from ID. was admitted recently for pyelo and was dc on IV aztreonam, micro reports growing enterococcus fecalis, she says that only vanco works for her. follow urine cx, start IV vanco, ID consult. analgesics, pain control , IVF (2) Asthma Current visit: No Status: Chronic not in exacerbation will continue home meds Qualifiers: Asthma severity: unspecified severity Asthma complication type: uncomplicated Qualified Code(s): J45.909 - Unspecified asthma, uncomplicated (3) Tobacco abuse Current visit: No Status: Chronic (4) Calculus of kidney Current visit: Yes Status: Acute non obstructing stones. no acute intervention required at this time. (5) UTI (urinary tract infection) Current visit: Yes Status: Acute as above Qualifiers: Urinary tract infection type: acute pyelonephritis Qualified Code(s): N10 - Acute pyelonephritis Internal Medicine - H&P: HPI Chief complaint: lower abdominal pain Admitted From: Home Plans for Post Hospital Care: Home History of present illness: Ms. Alfred is a 31 year old with PMH of neurogenic bladder with self catheterization reports to the emergency department complaining of left flank pain radiating to the left groin. She describes diffuse left abdominal pain and back pain. The pain started suddenly earlier this afternoon. She reports she has had multiple hernia repairs, as well as hysterectomy remotely. There is no history of recent surgery. reports nausea but no vomiting. she says she follows with clara herrera from ID and is allergic to most of the anibiotics she says esau only one that works for her is vancomycin. No chest pain shortness of breath or fever. The patient describes chronic recurrent hematuria and she says she had some reddish urine today. The pain is not associated with movement there is no history of rash or injury. Past Med Surg Social Fam HX - Past Medical History Medical history: asthma, kidney stones, renal disease, other Psychiatric history: anxiety, depression - Past Surgical History Surgical History: , cholecystectomy, herniorrhaphy, hysterectomy - Social History Smoking Status: Current every day smoker Smokeless Tobacco Status: No Alcohol use: rarely Drug use: none - Family History Father Living Status: Age at : 61 Cause of : [place] Hx Family Cardiac Disorders: Yes ([place], CHF) Hx Family Respiratory Disorders: Yes (COPD, emphysema) Hx Family Cancer: No Hx Family GI Disorders: Yes (Herniated esophagus) Hx Family Genitourinary Disorders: No Hx Family Endocrine Disorder: No Hx Family Musculoskeletal Disorders: No Hx Family Neuromuscular Disorders: No Hx Family Neurologic Disorders: No Hx Family HEENT Disorders: No Hx Family Autoimmune Disorders: No Hx Family Reproductive Disorders: No Hx Family Psychosocial Disorders: No Hx Family Medical Disorders: No Mother Living Status: Still Living Hx Family Cardiac Disorders: No Hx Family Respiratory Disorders: No Hx Family Cancer: Yes Hx Family GI Disorders: No Hx Family Genitourinary Disorders: No Hx Family Endocrine Disorder: No Hx Family Musculoskeletal Disorders: No Hx Family Neuromuscular Disorders: No Hx Family Neurologic Disorders: No Hx Family HEENT Disorders: No Hx Family Autoimmune Disorders: No Hx Family Reproductive Disorders: No Hx Family Psychosocial Disorders: No Hx Family Medical Disorders: No Internal Medicine - H&P: Meds Albuterol Sulfate [Albuterol Inhaler] 2 puff IH Q6HR PRN #1 hfa.aer.ad 08/11/15 [Rx] AcetaZOLAMIDE [Diamox Sequels] 500 mg PO BID 11/04/16 [History] Azelastine 0.1% Nasal [place] [Astelin] 2 spray NS DAILY 11/04/16 [History] Beclomethasone Diprop 80mcg [QVAR 80 mcg] 2 puff IH BID 11/04/16 [History] Buspirone HCl [Buspar] 30 mg PO BID 11/04/16 [History] Dicyclomine [Bentyl] 10 mg PO QID 11/04/16 [History] Omeprazole [PriLOSEC] 20 mg PO DAILY 11/04/16 [History] Aztreonam [Azactam] 1,000 mg IVPB Q8HR #36 vial 11/06/16 [Rx] Fluconazole [Diflucan] 150 mg PO ONCE #2 tablet 11/06/16 [Rx] Phenazopyridine [Pyridium] 100 mg PO TID #10 tablet 11/06/16 [Rx] Allergies ceftriaxone [From Rocephin] Allergy (Verified 12/01/16 19:09) Blister cephalexin [From Keflex] Allergy (Verified 12/01/16 19:09) Blister gentamicin [Gentamicin] Allergy (Verified 12/01/16 19:09) Blister Influenza Virus Vaccines Allergy (Verified 12/01/16 19:09) Swelling of Lip/Tongue/Throat Penicillins [PCN] Allergy (Verified 12/01/16 19:09) Swelling of Lip/Tongue/Throat Pneumococcal Vaccine Allergy (Verified 12/01/16 19:09) Swelling of Lip/Tongue/Throat Sulfa (Sulfonamide Antibiotics) Allergy (Verified 12/01/16 19:09) Muscle Pain ciprofloxacin [From Cipro] Adverse Reaction (Verified 12/01/16 19:09) See Comments it doesn't work nitrofurantoin [From Macrobid] Adverse Reaction (Verified 12/01/16 19:09) Blister tramadol Adverse Reaction (Verified 12/01/16 19:09) Fatigued All Systems PM: A 10-system review of systems was performed and is negative for pertinent findings except as documented above in the HPI. - Constitutional Constitutional: as per HPI - EENT Eyes: as per HPI Ears: as per HPI Nose, mouth and throat: as per HPI - Breasts Breasts: as per HPI - Cardiovascular Cardiovascular ROS IM: as per HPI - Respiratory Respiratory: as per HPI - Gastrointestinal Gastrointestinal: as per HPI - Genitourinary Genitourinary: as per HPI - Constitutional Vitals: Temp Pulse Resp BP Pulse Ox 97.9 F 84 16 113/73 94 04/06/17 00:52 04/06/17 00:52 04/06/17 00:52 04/06/17 00:52 04/06/17 00:52 General appearance: Present: A&O X 3, no acute distress Exam: neck- supple chest- b/l clear, no added sounds CVS-s1 and s2, no mr/g/ abd-soft,tenderness on the left upper and lower quad, bs are present ext- no edema neuro- alert and awkae, no focal neuro defecits. Internal Med - H&P Results - Labs CBC & Chem 7: 04/05/17 21:30 04/05/17 21:30
[2017-04-06] MEDS: Vancomycin 1,500 MG in D5% in Water 250 ML IVPB SCH ×2 (01:44→13:38)
[2017-04-06] MEDS: *HR* HYDROmorphone (PF) 1 MG/ML SYRINGE IVP PRN ×4 (01:44→23:44)
[2017-04-06] MEDS: 0.9 % Sodium Chloride 1,000 ML IVC SCH ×2 (01:45→12:25)
[2017-04-06] MEDS: Ondansetron 4 MG/2 ML VIAL IVP PRN ×3 (02:23→15:13)
[2017-04-06] MEDS: *HR* HYDROcodone/Acet 5/325 mg TABLET PO PRN ×2 (05:40→13:37)
[2017-04-06] MEDS ORDERED: Vancomycin 1,000 MG in D5% in Water 250 ML IVPB SCH (06:00)
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
[2017-04-06 18:09] LABS: Color,Urine Orange (Yellow); RBC,Urine 0-3 per hpf (0-3); Squamous Epithelial Cell,Urine Few per lpf (None-Few)
[2017-04-06 18:10] LABS: WBC,Urine 50-100 per hpf (0-3)
[2017-04-06] MEDS ORDERED: *HR* Morphine 2 MG/ML SYRINGE IVP ONE ×2 (20:33→20:45)
[2017-04-06] MEDS ORDERED: Ondansetron ODT 4 MG TAB.RAPDIS SL ONE (20:47)
[2017-04-06] MEDS ORDERED: *HR* HYDROmorphone 2 MG TABLET PO ONE (20:47)
[2017-04-07] MEDS: Vancomycin 1,500 MG in D5% in Water 250 ML IVPB SCH ×2 (01:28→15:24)
[2017-04-07] MEDS: *HR* HYDROmorphone (PF) 1 MG/ML SYRINGE IVP PRN ×7 (04:55→22:45)
[2017-04-07] MEDS: 0.9 % Sodium Chloride 1,000 ML IVC SCH ×3 (06:38→20:24)
[2017-04-07] MEDS: *HR* HYDROcodone/Acet 5/325 mg TABLET PO PRN (07:02)
[2017-04-07 07:30] LABS: Basophils % 0.4 %; Eosinophils # 0.2 K/mcL (0.0-0.6); Eosinophils % 2.2 %; Hematocrit 37.8 % (35.3-44.9); Hemoglobin 12.3 g/dL (11.5-15.4); Immature Granulocytes % 0.3 % (0-4); Lymphocytes # 2.8 K/mcL (0.6-4.6); Lymphocytes % 30.6 %; Mean Corpuscular HGB Conc 32.5 g/dL (31.6-35.5); Mean Corpuscular Hemoglobin 31.4 pg (28.0-33.3); Mean Corpuscular Volume 96.4 fL (83.0-100.0); Monocytes # 0.8 K/mcL (0.0-1.3); Monocytes % 8.9 %; Neutrophils # 5.3 K/mcL (1.6-8.9); Platelet Count 180 K/mcL (140-400); Red Blood Count 3.92 M/mcL (3.82-4.97); Red Cell Distribution Width 12.9 % (11.5-14.5); Segmented Neutrophils % 57.6 %
[2017-04-07 07:58] LABS: BUN/Creatinine Ratio 10 (6-26); Blood Urea Nitrogen 8 mg/dL (7-20); Calcium 9.1 mg/dL (8.6-10.8); Carbon Dioxide 24 mEq/L (19-29); Chloride 107 mEq/L (98-109); Glucose 137 mg/dL (70-99); Osmolality,Calculated 284 (280-300); Potassium 3.8 mEq/L (3.5-4.5); Sodium 137 mEq/L (136-145); eGFR For African Americans > 60 (> 60); eGFR For Non-African Americans > 60 (> 60)
--- NOTE | 2017-04-07 11:19 | Infectious Disease Progress No ---
Date of Encounter: 04/07/17 Time of Encounter: 10:45 - Assessment and Plan (1) Complicated urinary tract infection Current Visit: Yes Status: Acute Patient with neurogenic bladder and history of recurrent UTI's Mutiple allergies. Urine culture from 04/05/17 have grown GNR. Repeat urine culture sent 04/06/[address] dose not show signs of pyelonephritis. Recommend continuing vancomycin and cipro at this time. Will follow up with cultures and adjust antibiotics. Hopefully we will be able to transition to PO but may be challenging given her multiple allergies. Will need a prolonged course given her neurogenic bladder/ complicated UTI. Duration will depend on clinical course but sulma will need 7-14 days of antibiotics. continue to monitor for drug toxicities. (2) Sepsis Current Visit: Yes Status: Acute No longer meets SIRS criteria. Leukocytosis has resolved. Blood cultures are pending. continue vancomycin and cipro. Qualifiers: Sepsis type: sepsis due to unspecified organism Qualified Code(s): A41.9 - Sepsis, unspecified organism (3) Leukocytosis Current Visit: Yes Status: Resolved resolved Qualifiers: Leukocytosis type: unspecified Qualified Code(s): D72.829 - Elevated white blood cell count, unspecified (4) Multiple allergies Current Visit: Yes Status: Chronic as stated above. (5) Obesity (BMI 30-39.9) Current Visit: Yes Status: Chronic advise weight loss (6) Tobacco abuse Current Visit: No Status: Chronic advise cessation (7) Calculus of kidney Current Visit: Yes Status: Chronic management per primary team. - Subjective Interval history: No major events overnight. Patient states that she is still having moderate 6/ 10 pain in her left flank. she states that she has had some Nausea but no emesis or diarrhea. She denies any new symptoms or complains. She did have one loose bowel movement this AM but states this is her baseline since she had her gallbladder taken out. No further complaints or concerns at this time. Infect Dis PN-Objective Data - Labs CBC & Chem 7: 04/08/17 09:51 04/08/17 05:32 Labs: Laboratory Results - last 24 hr 04/06/17 04/07/17 04/07/17 17:58 06:27 06:27 WBC 9.3 RBC 3.92 Hgb 12.3 D Hct 37.8 MCV 96.4 MCH 31.4 MCHC 32.5 RDW 12.9 Plt Count 180 MPV 12.0 Immature Gran % 0.3 Seg Neutrophils % 57.6 Lymphocytes % 30.6 Monocytes % 8.9 Eosinophils % 2.2 Basophils % 0.4 Neutrophils # 5.3 Lymphocytes # 2.8 Monocytes # 0.8 Eosinophils # 0.2 Basophils # 0.0 Sodium 137 Potassium 3.8 Chloride 107 Carbon Dioxide 24 BUN 8 Creatinine 0.84 Est GFR ( Amer) > 60 Est GFR (Non-Af Amer) > 60 BUN/Creatinine Ratio 10 Glucose 137 H Calculated Osmolality 284 Calcium 9.1 Ur Specimen Adequacy Urine Color Neche A Urine Microscopic RBC 0-3 Urine Microscopic WBC 50-100 H Ur Squamous Epith Cells Few Ur Culture Indicated? YES A Cultures: Serology 04/06/17 Range/Units 17:58 Ur Specimen Adequacy Urine Color Neche A (Yellow) Urine Microscopic RBC 0-3 (0-3) per hpf Urine Microscopic WBC 50-100 H (0-3) per hpf Ur Squamous Epith Cells Few (None-Few) per lpf Ur Culture Indicated? YES A (NO) Exam - Constitutional Vitals: Temp Pulse Resp BP Pulse Ox 98.5 F 86 16 90/60 91 04/07/17 11:14 04/07/17 11:14 04/07/17 11:14 04/07/17 11:14 04/07/17 11:14 Exam: Gen.: This is a well-developed well-nourished 31-year-old female who is alert and oriented to person place and situation. She is lying in bed appears to be comfortable no acute distress at this time. Head: Normocephalic/atraumatic. HEENT: Anicteric sclerae, moist mucous membranes, Without masses thyromegaly. No cervical submandibular or supraclavicular lymphadenopathy palpable on exam. Heart: Mildly tachycardic, regular rhythm, no murmurs rubs or gallops. No JVD. Lungs: Clear to auscultation bilaterally. Normal effort of breathing. Abdomen: The abdomen is soft, nondistended, non-tender to palpation other than in the left costo vertebral angle. Exam is unchanged from yesterday. Musculoskeletal: Grossly normal facial respirated noted. Extremities: No clubbing, cyanosis or edema. Integument: No rash or lesions. Consult Discharge Plan - Plan Referrals: Kaya Cook [Primary Care Provider] - 04/10/17 9:20 am - Attending Attestation I examined this patient and my medical decision-making was reviewed with the FOREST EXAMINER/PA/Advanced Practice Nurse/Resident Physician. I agree with the documented findings, disposition and treatment plan as described except to the extent set forth below.
--- NOTE | 2017-04-07 12:33 | Internal Med Progress Note ---
Date of Encounter: 04/07/17 Time of Encounter: 09:45 - Assessment and plan (1) Complicated urinary tract infection Current Visit: Yes Status: Acute Assessment and plan: Patient with a lengthy history of complicated urinary tract infections likely secondary to neurogenic bladder and self catheterizations. Infectious disease is on board. She has multiple antibiotic allergies. Currently, she is on ciprofloxacin and vancomycin and cultures are still pending. Leukocytosis has resolved. Vital signs are stable except for mild hypotension. She received a 1 L bolus and currently has 0.9 running at 100 mL's per hour--she is 99 kg so to give her 30ml/kg of IVF, will give her another 1L and monitor her response. 30ml/kg would be approximately 3L. Her pain is severe and uncontrolled- will increase pain medication. Suspect early pyelo however CT scan is negative for acute processes. She has CVA tenderness on her left side ITS Impressions Abdomen/Pelvis CT 04/05/17 21:03 IMPRESSION: 1. Bilateral 2 mm nonobstructing renal stones. 2. Mild dilation of the left ureter mildly prominent left renal collecting system which appears grossly similar when compared with prior exam. No ureteral stone is identified on the left. Findings are nonspecific. A recently passed stone could potentially have this appearance however, the findings appear grossly unchanged when compared with the previous exam from October of 2016. 3. Re- demonstration of small fluid collection within the left pelvis. Findings may reflect pelvic inclusion cyst. D/ / Joon Wells MD / Joon Wells MD Interpreting Provider: Joon Wells MD (2) Sepsis Current Visit: Yes Status: Resolved (3) Leukocytosis Current Visit: Yes Status: Resolved (4) Pyelonephritis Current Visit: No Status: Suspected (5) DVT prophylaxis Current Visit: No Status: Acute Assessment and plan: IPCs ordered (6) Asthma Current Visit: No Status: Chronic Assessment and plan: No acute exacerbation. Patient denies shortness of breath above her norm. Tolerating room air. Qualifiers: Asthma severity: unspecified severity Asthma complication type: uncomplicated Qualified Code(s): J45.909 - Unspecified asthma, uncomplicated (7) Tobacco abuse Current Visit: No Status: Chronic Assessment and plan: Declines counseling (8) Calculus of kidney Current Visit: Yes Status: Chronic Assessment and plan: Nonobstructive (9) Pelvic cyst Current Visit: Yes Status: Acute (10) Multiple allergies Current Visit: Yes Status: Chronic Assessment and plan: Infectious diseases on board. (11) Obesity (BMI 30-39.9) Current Visit: Yes Status: Chronic - Subjective Interval history: Patient seen and examined. On examination, patient resting supine in bed. Patient complaining of severe pain that radiates from her left lower quadrant around her left flank. Patient sustained this pain is different and more severe than her prior infections. She states she was able to eat a little bit of Jell-O today but is otherwise not hungry. - Constitutional Vitals: Temp Pulse Resp BP Pulse Ox 98.5 F 86 16 90/60 91 04/07/17 11:14 04/07/17 11:14 04/07/17 11:14 04/07/17 11:14 04/07/17 11:14 General appearance: Present: mild distress (2/2 pain), A&O X 3, pleasant, answers questions appropriately - Head Head exam: Present: atraumatic, normocephalic - Eye Eye exam: Present: PERRL, conjuntiva pink, sclera anicteric Pupils: Present: PERRL - Neck Neck exam general surgery: Present: supple, trachea midline. Absent: lymphadenopathy - Respiratory Respiratory exam: Present: CTAB. Absent: accessory muscle use, rales, respiratory distress, rhonchi, wheezes - Cardiovascular Cardiovascular exam: Present: RRR, +S1, +S2. Absent: diastolic murmur, gallop, rubs, systolic murmur - GI/Abdominal GI/Abdominal exam: Present: hyperactive bowel sounds, soft, tenderness, no peritoneal signs. Absent: distended - Extremities Exam Extremities exam: Present: warm, radial pulses palpable and symetrical. Absent : calf tenderness, cyanotic, pedal edema - Back Exam Back exam: Present: CVA tenderness (L) - Neurological Exam Neurological exam: Present: alert, CN II-XII intact, oriented X3, no focal deficits, strengths equal and symetr throughout. Absent: pronater drift, facial droop, speech deficit - Skin Skin exam: Present: diaphoretic, intact, pallor, warm Internal Medicine: Result - Labs CBC & Chem 7: 04/07/17 06:27 04/07/17 06:27 Labs: Short CBC 04/07/17 Range/Units 06:27 WBC 9.3 (4.3-11.1) K/mcL Hgb 12.3 D (11.5-15.4) g/dL Hct 37.8 (35.3-44.9) % Plt Count 180 (140-400) K/mcL Neutrophils # 5.3 (1.6-8.9) K/mcL BMP 04/07/17 06:27 Sodium 137 Potassium 3.8 Chloride 107 Carbon Dioxide 24 BUN 8 Creatinine 0.84 Glucose 137 H Calcium 9.1 Urine 04/06/17 Range/Units 17:58 Urine Color [place] A (Yellow) Consult Discharge Plan - Plan Referrals: Kaya Cook [Primary Care Provider] - 04/10/17 9:20 am
[2017-04-07] MEDS ORDERED: 0.9 % Sodium Chloride 1,000 ML IVC ONE (12:43)
[2017-04-07] MEDS ORDERED: *HR* Promethazine 25 MG/ML VIAL IVP PRN (12:44)
[2017-04-07] MEDS ORDERED: Aminoglycoside Consult 1 EACH MC ONE (15:05)
[2017-04-07] MEDS: Ondansetron 4 MG/2 ML VIAL IVP PRN (20:31)
[2017-04-07] MEDS: Beclomethasone 80mcg MDI IH SCH (22:12)
[2017-04-08] MEDS: *HR* HYDROmorphone (PF) 1 MG/ML SYRINGE IVP PRN ×3 (01:28→07:51)
[2017-04-08] MEDS: Ondansetron 4 MG/2 ML VIAL IVP PRN ×2 (01:31→10:03)
[2017-04-08] MEDS: Vancomycin 1,500 MG in D5% in Water 250 ML IVPB SCH (01:50)
[2017-04-08] MEDS: 0.9 % Sodium Chloride 1,000 ML IVC SCH (04:07)
[2017-04-08 06:20] LABS: BUN/Creatinine Ratio 7 (6-26); Calcium 9.3 mg/dL (8.6-10.8); Carbon Dioxide 29 mEq/L (19-29); Chloride 103 mEq/L (98-109); Glucose 110 mg/dL (70-99); Osmolality,Calculated 284 (280-300); Potassium 4.1 mEq/L (3.5-4.5); Sodium 138 mEq/L (136-145); eGFR For African Americans > 60 (> 60); eGFR For Non-African Americans > 60 (> 60)
[2017-04-08 06:21] LABS: Blood Urea Nitrogen 5 mg/dL (7-20)
[2017-04-08] MEDS ORDERED: *HR* HYDROmorphone (PF) 1 MG/ML SYRINGE IVP PRN (09:31)
[2017-04-08 10:29] LABS: Basophils % 0.4 %; Eosinophils # 0.2 K/mcL (0.0-0.6); Eosinophils % 2.1 %; Hematocrit 38.8 % (35.3-44.9); Hemoglobin 12.3 g/dL (11.5-15.4); Immature Granulocytes % 0.3 % (0-4); Lymphocytes # 2.4 K/mcL (0.6-4.6); Lymphocytes % 26.5 %; Mean Corpuscular HGB Conc 31.7 g/dL (31.6-35.5); Mean Corpuscular Hemoglobin 30.5 pg (28.0-33.3); Mean Corpuscular Volume 96.3 fL (83.0-100.0); Monocytes # 0.7 K/mcL (0.0-1.3); Neutrophils # 5.6 K/mcL (1.6-8.9); Platelet Count 195 K/mcL (140-400); Red Blood Count 4.03 M/mcL (3.82-4.97); Red Cell Distribution Width 12.5 % (11.5-14.5); Segmented Neutrophils % 62.7 %
[2017-04-08] MEDS: Beclomethasone 80mcg MDI IH SCH ×2 (10:53→20:23)
--- NOTE | 2017-04-08 11:48 | Infectious Disease Progress No ---
Date of Encounter: 04/08/17 Time of Encounter: 08:45 - Assessment and Plan (1) Complicated urinary tract infection Current Visit: Yes Status: Acute Patient with neurogenic bladder and history of recurrent UTI's Mutiple allergies. Urine culture from 04/05/17 have grown GNR. Repeat urine culture sent 04/06/[address] dose not show signs of pyelonephritis. Recommend continuing vancomycin and cipro at this time. Will follow up with cultures and adjust antibiotics. Hopefully we will be able to transition to PO but may be challenging given her multiple allergies. Will need a prolonged course given her neurogenic bladder/ complicated UTI. Duration will depend on clinical course but sulma will need 7-14 days of antibiotics. continue to monitor for drug toxicities. (2) Sepsis Current Visit: Yes Status: Acute No longer meets SIRS criteria. Leukocytosis has resolved. Blood cultures are pending. continue vancomycin and cipro. (3) Leukocytosis Current Visit: Yes Status: Resolved resolved Qualifiers: Leukocytosis type: unspecified Qualified Code(s): D72.829 - Elevated white blood cell count, unspecified (4) Multiple allergies Current Visit: Yes Status: Chronic as stated above. (5) Obesity (BMI 30-39.9) Current Visit: Yes Status: Chronic advise weight loss (6) Tobacco abuse Current Visit: No Status: Chronic advise cessation (7) Calculus of kidney Current Visit: Yes Status: Chronic management per primary team. - Subjective Interval history: No major events overnight. Patient states that she is still having moderate 6/ 10 pain in her left flank. she states that she has had some Nausea but no emesis or diarrhea. She denies any new symptoms or complains. She did have one loose bowel movement this AM but states this is her baseline since she had her gallbladder taken out. No further complaints or concerns at this time. Infect Dis PN-Objective Data - Labs CBC & Chem 7: 04/08/17 09:51 04/08/17 05:32 Labs: Laboratory Results - last 24 hr 04/08/17 04/08/17 04/08/17 05:32 09:51 09:51 WBC 8.9 RBC 4.03 Hgb 12.3 Hct 38.8 MCV 96.3 MCH 30.5 MCHC 31.7 RDW 12.5 Plt Count 195 MPV 11.0 Immature Gran % 0.3 Seg Neutrophils % 62.7 Lymphocytes % 26.5 Monocytes % 8.0 Eosinophils % 2.1 Basophils % 0.4 Neutrophils # 5.6 Lymphocytes # 2.4 Monocytes # 0.7 Eosinophils # 0.2 Basophils # 0.0 Sodium 138 Potassium 4.1 Chloride 103 Carbon Dioxide 29 BUN 5 L Creatinine 0.75 Est GFR ( Amer) > 60 Est GFR (Non-Af Amer) > 60 BUN/Creatinine Ratio 7 Glucose 110 H Calculated Osmolality 284 Calcium 9.3 B-Natriuretic Peptide 89 Exam - Constitutional Vitals: Temp Pulse Resp BP Pulse Ox 97.9 F 69 14 93/61 97 04/08/17 10:44 04/08/17 10:44 04/08/17 10:44 04/08/17 10:44 04/08/17 10:44 Consult Discharge Plan - Plan Referrals: Kaya Cook [Primary Care Provider] - 04/10/17 9:20 am
--- NOTE | 2017-04-08 13:43 | Infectious Disease Progress No ---
Date of Encounter: 04/08/17 Time of Encounter: 08:25 - Assessment and Plan (1) Complicated urinary tract infection Current Visit: Yes Status: Acute Patient with neurogenic bladder and history of recurrent UTI's Mutiple allergies. Urine culture from 04/05/17 have grown castorena sensitive ecoli. Repeat urine culture sent 04/06/17 show no growth. However she was on antibiotics prior to this being collected. CT dose not show signs of pyelonephritis. Recommend switching to PO cipro and treating to complete a 10 day course. continue to monitor for drug toxicities. Infectious disease will sign off at this time. Please call with any further questions. Thank you for the consultation. (2) Sepsis Current Visit: Yes Status: Acute No longer meets SIRS criteria. Leukocytosis has resolved. Blood cultures from 04/06/17 show NGTD. Qualifiers: Sepsis type: sepsis due to unspecified organism Qualified Code(s): A41.9 - Sepsis, unspecified organism (3) Leukocytosis Current Visit: Yes Status: Resolved resolved Qualifiers: Leukocytosis type: unspecified Qualified Code(s): D72.829 - Elevated white blood cell count, unspecified (4) Multiple allergies Current Visit: Yes Status: Chronic as stated above. (5) Obesity (BMI 30-39.9) Current Visit: Yes Status: Chronic advise weight loss (6) Tobacco abuse Current Visit: No Status: Chronic advise cessation (7) Calculus of kidney Current Visit: Yes Status: Chronic management per primary team. - Subjective Interval history: Patient states her oxygen " was dropping overnight" She states she also feels somewhat short of breath. She denies cough or wheeze. She admits to nausea but no emesis. She denies diarrhea or abdominal pain. She complains of continued left flank pain but states her pain is currently well controlled. She has no further complaints or concerns at this time. Infect Dis PN-Objective Data - Labs CBC & Chem 7: 04/08/17 09:51 04/08/17 05:32 Labs: Laboratory Results - last 24 hr 04/08/17 04/08/17 04/08/17 05:32 09:51 09:51 WBC 8.9 RBC 4.03 Hgb 12.3 Hct 38.8 MCV 96.3 MCH 30.5 MCHC 31.7 RDW 12.5 Plt Count 195 MPV 11.0 Immature Gran % 0.3 Seg Neutrophils % 62.7 Lymphocytes % 26.5 Monocytes % 8.0 Eosinophils % 2.1 Basophils % 0.4 Neutrophils # 5.6 Lymphocytes # 2.4 Monocytes # 0.7 Eosinophils # 0.2 Basophils # 0.0 Sodium 138 Potassium 4.1 Chloride 103 Carbon Dioxide 29 BUN 5 L Creatinine 0.75 Est GFR ( Amer) > 60 Est GFR (Non-Af Amer) > 60 BUN/Creatinine Ratio 7 Glucose 110 H Calculated Osmolality 284 Calcium 9.3 B-Natriuretic Peptide 89 Exam - Constitutional Vitals: Temp Pulse Resp BP Pulse Ox 97.9 F 69 16 93/61 97 04/08/17 10:44 04/08/17 10:44 04/08/17 10:53 04/08/17 10:44 04/08/17 10:53 Exam: General: This is 31] Year oldfemale] who is alert and orientated to person place time and situation. No acute distress. HEENT: Head is normocephalic atraumatic pupils are equally round normal external appearance of the nose and ears, tongue is midline, dentition is intact. Heart: Regular rate and rhythm without murmur rubs or gallops, S1, S2, without S3 or S4. Capillary refills less than 2 seconds. Radial pulses are 2 out of 4 and synchronous. No JVD with inspection of the neck. Lshe has bibasilar crackles on today's exam this was not present yesterday. Abdomen: Bowel sounds are normoactive, no bruits, abdomen is soft, she still has some moderate costovertebral angle tenderness.no organomegaly noted, no guarding throughout the exam. Musculoskeletal: No gross deformity noted, moves all limbs without difficulty. Integument: Cool, dry, normal turgor, no edema. Psych: Alert, appropriate affect, cooperates fully with exam Consult Discharge Plan - Plan Referrals: Kaya Cook [Primary Care Provider] - 04/10/17 9:20 am - Attending Attestation I examined this patient and my medical decision-making was reviewed with the HEATING ELEMENT REPAIRER/PA/Advanced Practice Nurse/Resident Physician. I agree with the documented findings, disposition and treatment plan as described except to the extent set forth below. Patient seen and examined. Continues to have significant suprapubic pain. The urine looks red and I'm not sure why things Sivan patient is on Pyridium. Patient 's symptoms are exaggerated compared to what we have found on the urinalysis and urine culture. Maybe hospice want to pursue it further. I don't think this is infectious at this time. Consider other causes. He apparently did have a hysterectomy with oophorectomy in the past. As for infectious disease, discontinue ciprofloxacin to finish a 10 day course. No further recommendations. Will follow-up when necessary.
[2017-04-08] MEDS: *HR* HYDROcodone/Acet 5/325 mg TABLET PO PRN ×2 (13:52→20:13)
[2017-04-08] MEDS ORDERED: *HR* HYDROcodone/Acet 7.5/325 mg TABLET PO ONE (16:46)
--- NOTE | 2017-04-08 18:55 | Internal Med Progress Note ---
Date of Encounter: 04/08/17 Time of Encounter: 13:00 - Assessment and plan (1) Sepsis Current Visit: Yes Status: Resolved Assessment and plan: secondary to complicated UTI due to recurrent UTIs and neurogenic bladder. Patient self-catheterizes at home. Infectious disease is following. She has multiple antibiotic allergies. Urine culture grew pansensitive E coli 04/05. Blood cultures 04/06 are negative so far. CTAP scan is negative for any acute processes. sepsis has resolved. Clinically slowly improving. continue ciprofloxacin. Qualifiers: Sepsis type: sepsis due to unspecified organism Qualified Code(s): A41.9 - Sepsis, unspecified organism (2) Complicated urinary tract infection Current Visit: Yes Status: Acute Assessment and plan: plan as above. (3) Hypoxemia Current Visit: Yes Status: Acute Assessment and plan: Episodes of hypoxemia while resting in bed this AM. no sob. no chest pain. stop iv fluids. normal CBC. check CXR. nebs q 6hr. check cxr (4) Obesity (BMI 30-39.9) Current Visit: Yes Status: Chronic (5) Tobacco abuse Current Visit: No Status: Chronic Assessment and plan: counseled to quit, she declines it. - Subjective Interval history: patient complains of suprapubic pain. - Constitutional Vitals: Temp Pulse Resp BP Pulse Ox 98.3 F 78 14 121/82 94 04/08/17 15:23 04/08/17 15:23 04/08/17 15:23 04/08/17 15:23 04/08/17 15:23 General appearance: Present: cooperative, A&O X 3, pleasant, no acute distress, answers questions appropriately - Eye Eye exam: Present: PERRL, sclera anicteric - Neck Neck exam general surgery: Present: supple, trachea midline. Absent: lymphadenopathy - Respiratory Respiratory exam: Present: CTAB. Absent: wheezes - Cardiovascular Cardiovascular exam: Present: RRR - GI/Abdominal GI/Abdominal exam: Present: normal bowel sounds, soft, tenderness (mild suprapubic tenderness). Absent: distended - Extremities Exam Extremities exam: Absent: pedal edema - Back Exam Back exam: Absent: CVA tenderness (L), CVA tenderness (R) - Neurological Exam Neurological exam: Present: alert, oriented X3, no focal deficits, strengths equal and symetr throughout. Absent: facial droop, speech deficit - Skin Skin exam: Absent: rash Internal Medicine: Result - Labs CBC & Chem 7: 04/08/17 09:51 04/08/17 05:32 Labs: Short CBC 04/08/17 Range/Units 09:51 WBC 8.9 (4.3-11.1) K/mcL Hgb 12.3 (11.5-15.4) g/dL Hct 38.8 (35.3-44.9) % Plt Count 195 (140-400) K/mcL Neutrophils # 5.6 (1.6-8.9) K/mcL BMP 04/08/17 05:32 Sodium 138 Potassium 4.1 Chloride 103 Carbon Dioxide 29 BUN 5 L Creatinine 0.75 Glucose 110 H Calcium 9.3 - VTE Documentation of Mechanical Device: Intermittent pneumatic compression device Consult Discharge Plan - Plan Referrals: Kaya Cook [Primary Care Provider] - 04/10/17 9:20 am
[2017-04-08] MEDS: Ipratropium/Albuterol Neb 3 ML IH SCH (22:11)
[2017-04-09] MEDS: *HR* HYDROcodone/Acet 5/325 mg TABLET PO PRN ×2 (02:50→09:07)
[2017-04-09] MEDS: Ipratropium/Albuterol Neb 3 ML IH SCH ×2 (04:02→10:03)
[2017-04-09 06:24] LABS: BUN/Creatinine Ratio 11 (6-26); Blood Urea Nitrogen 9 mg/dL (7-20); Calcium 9.7 mg/dL (8.6-10.8); Carbon Dioxide 25 mEq/L (19-29); Chloride 106 mEq/L (98-109); Glucose 122 mg/dL (70-99); Osmolality,Calculated 290 (280-300); Potassium 4.5 mEq/L (3.5-4.5); Sodium 140 mEq/L (136-145); eGFR For African Americans > 60 (> 60); eGFR For Non-African Americans > 60 (> 60)
[2017-04-09 06:31] LABS: Basophils % 0.5 %; Eosinophils # 0.3 K/mcL (0.0-0.6); Eosinophils % 3.1 %; Hematocrit 39.1 % (35.3-44.9); Hemoglobin 12.4 g/dL (11.5-15.4); Immature Granulocytes % 0.4 % (0-4); Lymphocytes # 2.7 K/mcL (0.6-4.6); Lymphocytes % 34.1 %; Mean Corpuscular HGB Conc 31.7 g/dL (31.6-35.5); Mean Corpuscular Hemoglobin 30.5 pg (28.0-33.3); Mean Corpuscular Volume 96.1 fL (83.0-100.0); Mean Platelet Volume 11.9 fL (9.4-12.4); Monocytes # 0.7 K/mcL (0.0-1.3); Monocytes % 8.2 %; Neutrophils # 4.3 K/mcL (1.6-8.9); Platelet Count 223 K/mcL (140-400); Red Blood Count 4.07 M/mcL (3.82-4.97); Red Cell Distribution Width 12.5 % (11.5-14.5); Segmented Neutrophils % 53.7 %
[2017-04-09 07:13] VITALS: BP 112/74
--- NOTE | 2017-04-09 11:10 | Discharge Summary ---
Date of Encounter: 04/09/17 Time of Encounter: 11:07 - Discharge Diagnosis (1) Sepsis Priority: Primary Status: Resolved Qualifiers: Sepsis type: sepsis due to unspecified organism Qualified Code(s): A41.9 - Sepsis, unspecified organism (2) Complicated urinary tract infection Priority: Primary Status: Acute (3) Hypoxemia Priority: Primary Status: Chronic (4) Obesity (BMI 30-39.9) Priority: Secondary Status: Chronic (5) Tobacco abuse Priority: Secondary Status: Chronic Comments: counseled to quit - Discharge Medications Prescriptions: Ipratropium/Albuterol Neb [Duoneb] 3 ml IH [id number] #120 inh GuaiFENesin ER [Mucinex] 1,200 mg PO BID #14 tbbp.12hr levoFLOXacin [Levaquin] 500 mg PO DAILY #5 tablet Nebulizer [Aeroeclipse] 1 each MC DAILY #1 each Phenazopyridine [Pyridium] 200 mg PO TID #14 tab predniSONE [PredniSONE] 30 mg PO DAILY #15 tablet Home Medications: Albuterol Sulfate [Albuterol Inhaler] 2 puff IH Q6HR PRN #1 [id number].aer.[id number] 08/11/15 [Rx] AcetaZOLAMIDE [Diamox Sequels] 500 mg PO BID 11/04/16 [History] Azelastine 0.1% Nasal [place] [Astelin] 2 spray NS DAILY 11/04/16 [History] Beclomethasone Diprop 80mcg [QVAR 80 mcg] 1 puff IH BID 11/04/16 [History] Buspirone HCl [Buspar] 15 mg PO BID 11/04/16 [History] Omeprazole [PriLOSEC] 20 mg PO DAILY 11/04/16 [History] GuaiFENesin ER [Mucinex] 1,200 mg PO BID #14 tbbp.12hr 04/09/17 [Rx] Ipratropium/Albuterol Neb [Duoneb] 3 ml IH [id number] #120 inh 04/09/17 [Rx] Nebulizer [Aeroeclipse] 1 each MC DAILY #1 each 04/09/17 [Rx] Phenazopyridine [Pyridium] 200 mg PO TID #14 tab 04/09/17 [Rx] levoFLOXacin [Levaquin] 500 mg PO DAILY #5 tablet 04/09/17 [Rx] predniSONE [PredniSONE] 30 mg PO DAILY #15 tablet 04/09/17 [Rx] Allergies/Adverse Reactions: Allergies ceftriaxone [From Rocephin] Allergy (Verified 12/01/16 19:09) Blister cephalexin [From Keflex] Allergy (Verified 04/06/17 09:06) Hives gentamicin [Gentamicin] Allergy (Verified 04/06/17 09:06) Hives Influenza Virus Vaccines Allergy (Verified 12/01/16 19:09) Swelling of Lip/Tongue/Throat nitrofurantoin [From Macrobid] Allergy (Verified 04/06/17 09:06) Anaphylaxis Penicillins [PCN] Allergy (Verified 04/06/17 09:06) Anaphylaxis Pneumococcal Vaccine Allergy (Verified 12/01/16 19:09) Swelling of Lip/Tongue/Throat Sulfa (Sulfonamide Antibiotics) Allergy (Verified 04/06/17 09:06) Weakness ciprofloxacin [From Cipro] Adverse Reaction (Verified 04/06/17 09:06) See Comments Patient states "this doesn't work for me" tramadol Adverse Reaction (Verified 12/01/16 19:09) Fatigued Date of admission: 04/07/17 18:26 Primary care physician: Kaya Cook - Patient Status Disposition: Home, Self-Care Condition: Good Functional capacity at discharge: independent ambulation Overall status at discharge: patient is progressing back to baseline - Discharge Instructions Instructions: How to Stop Smoking (GEN), Cigarette Smoking and Your Health (GEN ) Follow Up With: Kaya Cook [Primary Care Provider] - 04/10/17 9:20 am Additional Instructions: Follow-up appointments: If there is not an appointment listed below, please call your physician and schedule a follow-up appointment. If you have congestive heart failure and your symptoms return, make an appointment with your physician. Medication List: Carry an up to date list of medications you are taking at all time. We have given you an updated medication list including any new medications that you have been prescribed. Please provide that list to your primary provider Symptoms: If your condition changes or you experience any of the following symptoms, notify your physician immediately: Unusual or worsening pain, fever, persistent nausea and vomiting, bleeding, increase in swelling (especially in your legs), sudden weight gain, extreme dizziness, chest pain, increased drainage or redness from a wound or incision. Go to the emergency department if you experience a problem with breathing. Weights: If you have a history of swelling or shortness of breath, weigh yourself daily and notify your physician if you have a weight gain of two or more pounds in one day or 5 or more pounds in a week. If you experience any of the warning signs for stroke: Sudden numbness or weakness of the face, arm or leg; especially on one side of the body, sudden confusion, trouble speaking or understanding, sudden trouble seeing in one or both eyes, sudden trouble walking, dizziness, loss of balance or coordination, sudden sever headache with no cause; Call 911 or go to the emergency room. Stroke is a medical emergency. Some risk factors for stroke: Age, cigarette smoking, diabetes, excessive alcohol consumption, family history , high blood pressure, overweight, physical inactivity, prior stroke, heart attack, diagnosis of carotid artery stenosis or other artery disease. If you smoke, STOP: Smoking or tobacco use significantly increases your risk of heart and lung disease. Your chance of disease greatly increases if you continue to smoke. For more information, call the [employer] quit line for smoking cessation QUIT-NOW ( ) - Diet and Activity Activity: resume usual activities as tolerated Diet: low fat, low cholesterol, low salt diet Interval History: Patient denies any chest pain or shortness of breath. No cough. She is eating and ambulating well. Hospital course: Ms. Alfred is a 31 year old female with past medical history of asthma, neurogenic bladder on self-catheterization at home, and heavy tobacco use who presented with a chief complaint of lower abdominal pain. She was admitted with diagnosis of sepsis secondary to recurrent UTI. Urine culture grew pansensitive Escherichia coli. Blood cultures were negative. CT abdomen and pelvis was negative for any acute process. She was started on empiric antibiotics with clinical improvement and then switched to oral ciprofloxacin without any issues. Patient had episode of hypoglycemia during this hospitalization that that resolved after starting her on scheduled nebulizations. She has a history of heavy tobacco use and chronic cough. Suspected COPD. Chest x-ray reviewed by me showed bibasal atelectasis. She was discharged on nebulizations at home as well as prednisone and levaquin for COPD exacerbation. PLAN: PFTs as outpatient. Repeat chest x-ray in 4-6 weeks. Sleep study as outpatient. - Time Spent with Patient Total time spent providing and/or coordinating discharge services: - Constitutional Vitals: Temp Pulse Resp BP Pulse Ox 98.1 F 77 17 112/74 95 04/09/17 07:12 04/09/17 07:12 04/09/17 07:12 04/09/17 07:12 04/09/17 07:12 General appearance: Present: cooperative, A&O X 3, pleasant, no acute distress, answers questions appropriately - Neck Neck exam general surgery: Present: supple, trachea midline. Absent: lymphadenopathy - Respiratory Respiratory exam: Present: CTAB - Cardiovascular Cardiovascular exam: Present: RRR - GI/Abdominal GI/Abdominal exam: Present: normal bowel sounds, soft. Absent: distended, tenderness - Extremities Exam Extremities exam: Absent: pedal edema - Back Exam Back exam: Absent: CVA tenderness (L), CVA tenderness (R) - Neurological Exam Neurological exam: Present: alert, oriented X3, no focal deficits, strengths equal and symetr throughout. Absent: facial droop, speech deficit - Skin Skin exam: Absent: rash - VTE Documentation of Mechanical Device: Intermittent pneumatic compression device
[2017-04-09] MEDS: Beclomethasone 80mcg MDI IH SCH (11:26)
== END 2017-04-09 13:23 | disposition home or self-care (01) | DRG 720 ==
LOC: EMEROO 20:38 → 3BNU 20:38 → SUATTDRO 23:42 → 3BNU 04-06 00:29 → SUATTDRO 04-07 18:26
PROVIDERS: ADMIT Internal Medicine Endocrinology, Diabetes & Metabolism; ATTEND Internal Medicine

== ENCOUNTER 2020-04-17 15:21 | Observation (INO) ==
[2020-04-17 17:39] LABS: Basophils # 0.1 K/mcL (0.0-0.2); Basophils % 0.6 %; Eosinophils # 0.2 K/mcL (0.0-0.6); Eosinophils % 1.6 %; Hematocrit 45.2 % (35.3-44.9); Hemoglobin 14.4 g/dL (11.5-15.4); Immature Granulocytes % 0.3 % (0-4); Lymphocytes # 3.1 K/mcL (0.6-4.6); Lymphocytes % 30.5 %; Mean Corpuscular HGB Conc 31.9 g/dL (31.6-35.5); Mean Corpuscular Hemoglobin 30.9 pg (28.0-33.3); Mean Platelet Volume 10.8 fL (9.4-12.4); Monocytes # 0.6 K/mcL (0.0-1.3); Monocytes % 6.3 %; Neutrophils # 6.1 K/mcL (1.6-8.9); Platelet Count 226 K/mcL (140-400); Red Blood Count 4.66 M/mcL (3.82-4.97); Red Cell Distribution Width 12.4 % (11.5-14.5); Segmented Neutrophils % 60.7 %; White Blood Count 10.1 K/mcL (4.3-11.1)
[2020-04-17 17:40] LABS: Bacteria,Urine Few per hpf (None-Few); Bilirubin,Urine Negative (Negative); Blood,Urine Small (Negative); Clarity,Urine Clear (Clear); Color,Urine Light-Yellow (Yellow); Glucose,Urine (UA) Normal (Normal); Ketones,Urine Negative (Negative); Leukocyte Esterase,Urine Negative (Negative); Mucus,Urine Few per lpf (None-Few); Nitrite,Urine Negative (Negative); PH,Urine 6.5 pH Units (5.0-8.0); Protein,Urine Negative (Neg-Trace); RBC,Urine 30-50 per hpf (0-3); Specific Gravity,Urine 1.018 (1.010-1.025); Squamous Epithelial Cell,Urine Few per hpf (None-Few); Urobilinogen,Urine Normal (Normal); WBC,Urine 0-3 per hpf (0-3)
[2020-04-17 17:48] LABS: BUN/Creatinine Ratio 15 (6-26); Blood Urea Nitrogen 10 mg/dL (6-20); Calcium 9.8 mg/dL (8.6-10.3); Carbon Dioxide 26 mEq/L (23-29); Chloride 104 mEq/L (98-107); Glucose 85 mg/dL (70-105); Osmolality,Calculated 286 (280-300); Sodium 139 mEq/L (136-145); eGFR For African Americans > 60 (> 60); eGFR For Non-African Americans > 60 (> 60)
[2020-04-17] MEDS ORDERED: Ertapenem 1,000 MG in 0.9 % Sodium Chloride Mini Bag 100 ML IVPB ONE (18:00)
[2020-04-17] MEDS ORDERED: Acetaminophen 325 MG TABLET PO PRN (18:21)
[2020-04-17] MEDS ORDERED: Naloxone 0.4 MG/ML INJ IVP PRN (18:21)
[2020-04-17] MEDS ORDERED: *HR* HYDROcodone/Acet 7.5/325 mg TABLET PO PRN ×2 (19:43→19:48)
[2020-04-17] MEDS: Ondansetron 4 MG/2 ML VIAL IVP PRN (22:50)
[2020-04-17] MEDS: Acyclovir 200 MG CAPSULE PO SCH (23:59)
[2020-04-17] MEDS: *HR* Heparin 5,000 UNIT/ML VIAL SQ SCH (23:59)
[2020-04-18 05:45] LABS: Basophils # 0.1 K/mcL (0.0-0.2); Basophils % 0.7 %; Eosinophils # 0.3 K/mcL (0.0-0.6); Eosinophils % 3.1 %; Hematocrit 47.3 % (35.3-44.9); Hemoglobin 14.6 g/dL (11.5-15.4); Immature Granulocytes % 0.5 % (0-4); Lymphocytes # 3.8 K/mcL (0.6-4.6); Lymphocytes % 43.6 %; Mean Corpuscular HGB Conc 30.9 g/dL (31.6-35.5); Mean Corpuscular Hemoglobin 31.1 pg (28.0-33.3); Mean Corpuscular Volume 100.6 fL (83.0-100.0); Mean Platelet Volume 10.8 fL (9.4-12.4); Monocytes # 0.6 K/mcL (0.0-1.3); Monocytes % 6.7 %; Neutrophils # 3.9 K/mcL (1.6-8.9); Platelet Count 175 K/mcL (140-400); Red Cell Distribution Width 12.5 % (11.5-14.5); Segmented Neutrophils % 45.4 %; White Blood Count 8.7 K/mcL (4.3-11.1)
[2020-04-18 06:21] LABS: BUN/Creatinine Ratio 17 (6-26); Blood Urea Nitrogen 13 mg/dL (6-20); Calcium 8.8 mg/dL (8.6-10.3); Carbon Dioxide 20 mEq/L (23-29); Chloride 105 mEq/L (98-107); Glucose 93 mg/dL (70-105); Magnesium 2.1 mg/dL (1.6-2.6); Osmolality,Calculated 284 (280-300); Potassium 4.3 mEq/L (3.5-5.1); Sodium 137 mEq/L (136-145); eGFR For African Americans > 60 (> 60); eGFR For Non-African Americans > 60 (> 60)
[2020-04-18] MEDS: *HR* Heparin 5,000 UNIT/ML VIAL SQ SCH ×3 (06:21→21:36)
[2020-04-18] MEDS: Ondansetron 4 MG/2 ML VIAL IVP PRN (06:50)
[2020-04-18] MEDS: Acyclovir 200 MG CAPSULE PO SCH ×2 (09:19→21:36)
[2020-04-18] MEDS: Nicotine 14 MG PATCH.TD24 TD SCH (09:20)
[2020-04-18] MEDS: *HR* HYDROcodone/Acet 10/325 mg TABLET PO PRN (12:32)
[2020-04-18] MEDS ORDERED: Isovue-370 500 ML BOTTLE IVP ONE (12:42)
[2020-04-18] MEDS: Ertapenem 1,000 MG in 0.9 % Sodium Chloride Mini Bag 100 ML IVPB SCH (18:16)
[2020-04-19] MEDS: *HR* HYDROcodone/Acet 10/325 mg TABLET PO PRN (03:19)
[2020-04-19] MEDS: Ondansetron 4 MG/2 ML VIAL IVP PRN ×2 (03:21→17:12)
[2020-04-19 03:45] LABS: Basophils # 0.1 K/mcL (0.0-0.2); Basophils % 0.6 %; Eosinophils # 0.3 K/mcL (0.0-0.6); Eosinophils % 3.5 %; Hematocrit 44.5 % (35.3-44.9); Hemoglobin 14.1 g/dL (11.5-15.4); Immature Granulocytes % 0.5 % (0-4); Lymphocytes # 3.3 K/mcL (0.6-4.6); Lymphocytes % 37.1 %; Mean Corpuscular HGB Conc 31.7 g/dL (31.6-35.5); Mean Corpuscular Hemoglobin 31.2 pg (28.0-33.3); Mean Corpuscular Volume 98.5 fL (83.0-100.0); Mean Platelet Volume 10.4 fL (9.4-12.4); Monocytes # 0.7 K/mcL (0.0-1.3); Monocytes % 7.5 %; Neutrophils # 4.5 K/mcL (1.6-8.9); Platelet Count 237 K/mcL (140-400); Red Blood Count 4.52 M/mcL (3.82-4.97); Red Cell Distribution Width 12.3 % (11.5-14.5); Segmented Neutrophils % 50.8 %; White Blood Count 8.8 K/mcL (4.3-11.1)
[2020-04-19 04:03] LABS: BUN/Creatinine Ratio 17 (6-26); Blood Urea Nitrogen 14 mg/dL (6-20); Calcium 9.3 mg/dL (8.6-10.3); Carbon Dioxide 27 mEq/L (23-29); Chloride 100 mEq/L (98-107); Glucose 114 mg/dL (70-105); Osmolality,Calculated 283 (280-300); Potassium 3.8 mEq/L (3.5-5.1); Sodium 136 mEq/L (136-145); eGFR For African Americans > 60 (> 60); eGFR For Non-African Americans > 60 (> 60)
[2020-04-19] MEDS: *HR* Heparin 5,000 UNIT/ML VIAL SQ SCH ×3 (05:41→21:22)
[2020-04-19] MEDS ORDERED: polyethylene glycoL 3350 17 GM POWD.PACK PO ONE (07:50)
[2020-04-19] MEDS: Acyclovir 200 MG CAPSULE PO SCH ×2 (10:00→21:21)
[2020-04-19] MEDS: Nicotine 14 MG PATCH.TD24 TD SCH (10:01)
[2020-04-19] MEDS ORDERED: Acetaminophen 325 MG TABLET PO PRN (13:40)
[2020-04-19] MEDS ORDERED: *HR* HYDROcodone/Acet 7.5/325 mg TABLET PO PRN (13:41)
[2020-04-19] MEDS: Ertapenem 1,000 MG in 0.9 % Sodium Chloride Mini Bag 100 ML IVPB SCH (17:10)
[2020-04-20] MEDS: *HR* Heparin 5,000 UNIT/ML VIAL SQ SCH (06:05)
[2020-04-20] MEDS: Acyclovir 200 MG CAPSULE PO SCH (07:59)
[2020-04-20] MEDS: Nicotine 14 MG PATCH.TD24 TD SCH (08:06)
[2020-04-20] MEDS: Ondansetron 4 MG/2 ML VIAL IVP PRN (08:10)
[2020-04-20] MEDS ORDERED: levoFLOXacin 750 MG TABLET PO SCH (09:00)
[2020-04-20 10:10] VITALS: BP 105/68
== END 2020-04-20 13:13 | disposition home or self-care (01) ==
LOC: SUATTDRO → 3ANU 15:21 → EMEROOARM 15:21 → SUATTDRO 18:34 → 3ANU 19:30
PROVIDERS: ADMIT Pharmacist; ATTEND Internal Medicine